=== PATIENT | female | born 1995 | race Caucasian/White ===

== ENCOUNTER 2019-02-25 04:31 | Emergency (ER) | payer MEDICAID, SELFPAY ==
[2019-02-25 04:32] VITALS: BP 129/80; PULSE 87; RESP 16; TEMP 36.6; O2SAT 100; BMI 21.7
--- NOTE | 2019-02-25 04:45 | ED.VISSUMM ---
- ER Visit Summary Date of Service: 02/25/19 Chief Complaint: Eye injury History of Present Illness: The patient is a 23 F who presents for evaluation of a right eye injury. Patient states her 2-year-old son poked her in the right eye with his finger. She had immediate pain and has been unable to open the eye due to pain and photophobia. She does not wear contacts but does wear eyeglasses. She denies any other injuries. Physical Examination: Patient is well-nourished and well-developed, appears uncomfortable. Right eye is shut. No periorbital erythema or edema noted. Left eye has a normal exam. After instillation of tetracaine ophthalmic drop in the right eye, patient has diffuse conjunctiva injection. Extraocular movement intact and pupils are equal round reactive to light. Slit-lamp exam shows anterior chamber deep and quiet. Fluorescein uptake noted in an ovoid shape on the medial cornea negative Karla sign. Remainder of exam unremarkable. Test Results: [] Emergency Department Course and Treatment: Patient had great relief with the tetracaine drop and was able to open her eye comfortably. The eye exam did not show any sign of globe rupture. Patient does have a large corneal abrasion on the medial cornea. No other dye uptake was noted. Patient was placed on erythromycin ointment. She has an eye doctor and will follow up on Wednesday. All but a few drops of the tetracaine was discarded and patient was given the remaining few tetracaine drops to use for severe pain at home. Patient discharged in improved condition. Treatment Plan: [] Disposition: [] Impression: Right corneal abrasion This note was generated with roomlinx dictation software. It may contain incorrect words, spelling, and punctuation that were not noted in review of the chart prior to signing ED Disposition - Plan for ED Patient: Disposition: Home or Assisted Living Instructions: ED Eye Injury Corneal Abrasion Referrals: Keli Arizmendi MD [Primary Care Provider] - Additional Instructions: Please follow-up with your eye doctor on Wednesday for a reevaluation of your eye injury. Use the antibiotic as prescribed to prevent infection. Use [id number] pain medication as needed for pain. You may use 1 tetracaine drop every 4 hours as needed for severe pain. Do not use more than 3 drops in 1 day. If you have any significant worsening of your symptoms or any new concerning symptoms, return immediately to the emergency department for another evaluation.
[2019-02-25] MEDS: Tetracaine 0.5% Ophthalmic Bottle 1 DRP RIGHT EYE (04:48)
[2019-02-25] MEDS: Fluorescein 1 MG STRIP 1 STRIP RIGHT EYE (04:48)
[2019-02-25] MEDS: Erythromycin Base 1 OPTH.TUBE 1 APPLIC RIGHT EYE (04:53)
[2019-02-25 05:11] VITALS: BP 129/80; PULSE 87; RESP 16; O2SAT 100
== END 2019-02-25 05:12 | disposition home or self-care (01) ==
LOC: ED 05:03
PROVIDERS: Emergency Provider Emergency Medicine; Family Provider Internal Medicine; PCP Internal Medicine
DX: S05.01XA Injury of conjunctiva and corneal abrasion without foreign body, right eye, initial encounter (principal); W50.0XXA Accidental hit or strike by another person, initial encounter; Y93.9 Activity, unspecified; Y92.9 Unspecified place or not applicable
CPT/HCPCS: 99283

== ENCOUNTER 2021-07-08 17:56 | Emergency (ER) | payer MEDICAID, SELFPAY ==
[2021-07-08 17:58] VITALS: BP 124/91; PULSE 73; RESP 14; TEMP 35.9; O2SAT 100; BMI 21.6
--- NOTE | 2021-07-08 18:17 | EKG12_ITS ---
Test Reason : DYSRHYTHMIA Blood Pressure : / mmHG Vent. Rate : 074 BPM Atrial Rate : 074 BPM P-R Int : 162 ms QRS Dur : 086 ms QT Int : 388 ms P-R-T Axes : 069 066 039 degrees QTc Int : 430 ms Normal sinus rhythm with sinus arrhythmia Normal ECG Confirmed by TEJA DE LEÓN, SALVATORE ([id number]), film editor CASPER SANCHEZ ([id number]) on 07/10/2021 9:30:32 AM Referred By: TL Confirmed By:SALVATORE LEZAMA MD
--- NOTE | 2021-07-08 18:28 | ED.VIS.DYS ---
HPI History of Present Illness Chief Complaint: Shortness of Breath Informant: patient Narrative Narrative: Patient presents intermittent dyspnea worse with exertion for the past week. Symptoms was worsening yesterday and today. States even short of breath while reading books. 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 Denies any recent travel surgeries or immobilizations. No history of PE or DVT. Denies any past medical history. No family history of clotting disorders. No tobacco history. No cough. No fever or headaches. No vomiting or diarrhea. No loss of taste or smell. She is Covid vaccinated. Reports mother is a nurse, she is monitoring her her pulse ox was in the 90s yesterday. However today symptoms felt a lot worse. She states she has anxiety in the past however this feels different. Prior similar symptoms: No PFSH PFSH Medical History no medical history Home Medications escitalopram oxalate 10 mg PO DAILY 07/08/21 [History Last Taken Unknown] trazodone 50 mg PO DAILY 07/08/21 [History Last Taken Unknown] Allergy/AdvReac Type Severity Reaction Status Date / Time promethazine [From Phenergan] AdvReac Other Verified 07/08/21 17:58 Social History Smoking Status: Never smoker ROS ROS ED Constitutional Constitutional ED: Denies chills, fever(s) or sweats Eyes Eyes: Denies change in vision ENT ENT ED: Denies dysphagia or sore throat Cardiovascular Cardiovascular: Denies chest pain, leg edema, palpitations or racing heartbeat Respiratory/Chest Respiratory/Chest: Reports dyspnea and dyspnea on exertion; Denies cough Gastrointestinal Gastrointestinal: Denies abdominal pain, diarrhea, nausea or vomiting Genitourinary Genitourinary ED: Denies dysuria, hematuria or urinary frequency Musculoskeletal Musculoskeletal: Denies back pain, extremity pain or neck pain Integumentary Denies rash or wounds Neurologic Neurologic: Denies headache(s), paresthesias or weakness EXAM Physical Exam Const Vital Signs: 07/08/21 17:58 07/08/21 18:38 07/08/21 20:10 Temperature 96.7 F L Temperature Source Temporal Pulse Rate 73 85 Respiratory Rate 14 16 Respiratory Effort Normal Non-Labored Respiratory Depth Normal Respiratory Pattern Normal Blood Pressure 124/91 H 116/87 H Blood Pressure Mean 102 Pulse Ox 100 97 Oxygen Delivery Method Room Air Room Air Positive well nourished and well developed General Appearance ED: well developed and NAD HEENT Reports moist mucous membranes normocephalic and atraumatic Eyes PERRL, EOMs intact bilaterally and conjunctivae normal General Eye ED: Yes normal appearance of both eyes Neck no lymphadenopathy and supple General: Negative for tenderness Chest Wall Chest: Negative for tenderness Resp normal respiratory effort and normal air movement Effort and Inspection: symmetric chest movement; Negative for respiratory distress Cardio regular rate, regular rhythm and no murmurs Peripheral Pulses: pulses 2+ throughout GI normal to inspection, nondistended, normoactive bowel sounds and non-tender Palpation: Negative for guarding or rebound tenderness present Back/Spine no CVA tenderness and no thoracic nor lumbar tenderness Extremity normal to inspection General Extremety ED: Negative for edema or tenderness General Extremity: Negative for edema Neuro oriented x3 and no sensory deficits noted Sensorium / Orientation: awake and alert Skin no rashes or lesions noted and no wounds MDM MDM MDM Narrative Medical decision making narrative: EKG cardiac work-up negative. With her concerns for exertional dyspnea D-dimer also obtained normal. Chest x-ray negative. Vitals remained stable. Patient reassured. She will follow-up with her PCP with return precautions. All questions were answered. Lab Data Attestation: I reviewed the patient's lab results. Labs: Laboratory Results - last 24 hr 07/08/21 07/08/21 07/08/21 18:35 18:35 18:35 WBC 6.1 RBC 4.72 Hgb 13.6 Hct 40.0 MCV 84.7 MCH 28.8 MCHC 34.0 RDW Std Deviation 37.9 RDW Coeff of Dileep 12.3 Plt Count 216 MPV 10.2 Immature Gran % (Auto) 0.300 Neut % (Auto) 63.9 Lymph % (Auto) 25.8 Vermillion % (Auto) 6.7 Eos % (Auto) 2.3 Baso % (Auto) 1.0 Absolute Neuts (auto) 3.9 Absolute Lymphs (auto) 1.58 Nucleated RBC % 0 D-Dimer Quant (PE/DVT) 0.29 Sodium 139 Potassium 3.5 Chloride 104 Carbon Dioxide 27.0 Anion Gap 8 BUN 14 Creatinine 0.60 Estim Creat Clear Calc 115.47 Est GFR (MDRD) Af Amer 153 Est GFR (MDRD) Non-Af 127 BUN/Creatinine Ratio 23.4 H Glucose 93 Calcium 9.1 Troponin I High Sens 4 Serum , Qual 07/08/21 18:35 WBC RBC Hgb Hct MCV MCH MCHC RDW Std Deviation RDW Coeff of Dileep Plt Count MPV Immature Gran % (Auto) Neut % (Auto) Lymph % (Auto) Vermillion % (Auto) Eos % (Auto) Baso % (Auto) Absolute Neuts (auto) Absolute Lymphs (auto) Nucleated RBC % D-Dimer Quant (PE/DVT) Sodium Potassium Chloride Carbon Dioxide Anion Gap BUN Creatinine Estim Creat Clear Calc Est GFR (MDRD) Af Amer Est GFR (MDRD) Non-Af BUN/Creatinine Ratio Glucose Calcium Troponin I High Sens Serum , Qual NEGATIVE Radiography Chest X-Ray - ED: 1 View, Read by ED Physician and Read by Radiologist Diagnostic Testing: Clinical Impression(s) from Imaging Studies Chest X-Ray 07/08/21 19:04 IMPRESSION: No acute radiographic abnormalities. Electronically Signed: Seymour Garcia MD at 20:09 EDT Tel , Service support , EKG Initial EKG: Attestation: I personally reviewed and interpreted this EKG as follows: Comments: Sinus rate of 74, no ST or T wave changes. Discharge Plan Triage Chief Complaint: Shortness of Breath ED Provider: Michael Espinoza Dx/Rx/DC Orders Clinical Impression: Dyspnea Instructions: ED Dyspnea Prescriptions: No Action trazodone 50 mg tablet 50 mg PO DAILY RF: 0 escitalopram oxalate 10 mg tablet 10 mg PO DAILY RF: 0 Primary Care Provider: Jess Moffett NP Referrals: Jess Moffett NP, BOATBUILDER APPRENTICE WOOD-C [Primary Care Provider] - 3-5 Days Activity Restrictions/Additional Instructions: Normal cardiac work-up. Normal D-dimer. Normal chest x-ray. Negative Covid testing. Monitor symptoms and follow-up with your PCP. Return if any worsening symptoms. Disposition Disposition: Home, Self Care Discharge Date/Time: 07/08/21 20:11
[2021-07-08 18:41] LABS: Absolute Lymphocyte Count 1.58 X10^3/uL (0.83-4.51); Absolute Neutrophil Count 3.9 X10^3/uL (2.0-7.7); Basophil# 0.06 X10^3/uL; Eosinophil# 0.14 X10^3/uL; Eosinophils% 2.3 % (0-5); Hemoglobin 13.6 g/dL (12.0-15.0); Lymphocyte # 1.58 X10^3/ul (0.83-4.51); Lymphocyte % 25.8 % (19-41); Mean Corpuscular Hgb 28.8 pg (27.0-32.0); Mean Corpuscular Volume 84.7 fL (81-99); Mean Platelet Vol. 10.2 fl (6.2-12.0); Monocyte# 0.41 X10^3/uL; Monocyte% 6.7 % (0-10); NRBC Flagged by Analyzer 0 % (0-5); Neutrophil # 3.91 X10^3/uL (2.7-7.7); Neutrophil % 63.9 % (47-70); Platelet Count 216 K/mm3 (150-450); RBC Distribution Width CV 12.3 % (11.6-14.6); RBC Distribution Width SD 37.9 fl (35.1-43.9); Red Blood Count 4.72 M/mm3 (4.2-5.4); White Blood Count 6.1 K/mm3 (4.4-11.0)
[2021-07-08 18:53] LABS: D-Dimer Quantitative (DVT/PE) 0.29 FEU/ug/m (0.27-0.49)
[2021-07-08 18:54] LABS: Internal QC Validated? YES +Cl - CLEAR BKGD; Pregnancy, Serum, hCG Quali. NEGATIVE Negative
[2021-07-08 18:58] LABS: Anion Gap 8 (5-15); BUN 14 mg/dL (7-18); BUN/Creat Ratio 23.4 RATIO (10-20); Calcium,Total 9.1 mg/dL (8.5-10.1); Chloride 104 mmol/L (98-107); EST Glomerular Filtration Rate 127 mL/min (>60); Est Glom Filt Rate - Afr Amer 153 mL/min (>60); Estimated Creatinine Clearance 115.47 ml/min; Glucose 93 mg/dL (74-106); Potassium 3.5 mmol/L (3.5-5.1); Sodium Level 139 mmol/L (136-145); Troponin-I HS 4 pg/mL (3.0-54.0)
--- NOTE | 2021-07-08 19:04 | RAD_ITS ---
INDICATION: sob EXAMINATION/TECHNIQUE: X-RAY - XR Chest 1 View COMPARISON: 02/14/2015. FINDINGS: The lungs are clear. The cardiomediastinal silhouette is unremarkable. No pleural effusion or pneumothorax. No acute osseous abnormalities. RAD/Chest 1 View (Portable) IMPRESSION: No acute radiographic abnormalities. Electronically Signed: Seymour Garcia MD at 20:09 EDT Tel , Service support ,
[2021-07-08 20:10] VITALS: BP 116/87; PULSE 85; RESP 16; O2SAT 97
== END 2021-07-08 20:11 | disposition home or self-care (01) ==
PROVIDERS: Emergency Provider Emergency Medicine; PCP Nurse Practitioner Family
DX: R06.00 Dyspnea, unspecified (principal); F41.9 Anxiety disorder, unspecified; Z79.899 Other long term (current) drug therapy
CPT/HCPCS: 71045; 80048; 84484; 84703; 85025; 85379; 87426; 93005; 99284

== ENCOUNTER 2022-02-10 07:23 | Day surgery (SDC) | payer MEDICAID, SELFPAY ==
--- NOTE | 2022-02-10 07:47 | PCM.HP.BLA ---
History and Physical Date of Admission: 02/10/22 Intake Vital Signs 01/06/22 09:59 Height 5 ft 3 in Weight: 129 lb BMI 22.8 Intake Visit Reasons: tubal consult Chief Complaint: tubal consult Licensing Court Magistrate Required: No Allergies promethazine [From Phenergan] Adverse Reaction (Verified 07/08/21 17:58) Other Medications escitalopram oxalate 10 mg PO DAILY 07/08/21 [History Confirmed 01/06/22] trazodone 50 mg PO DAILY 07/08/21 [History Confirmed 01/06/22] buspirone 15 mg tablet 15 mg PO TID 01/06/22 [History Confirmed 01/06/22] Is last menstrual period known: Yes Last Menstral Period: 01/05/22 Post menopausal: No Patient : No : No PFSH Family History (Updated 01/06/22 @ 10:03 by Vicky Alba) Grandmother Lung cancer Ovarian cancer Non-Hodgkins lymphoma Mother Thyroid disorder Social History Smoking Status: Never smoker alcohol intake: never substance use type: does not use seatbelt use: always do you feel safe at home: Yes 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 she has been discussing for a while with her they have both looked into permanent options and she wants to proceed. they have 3 combined children. she has a fmaily history of ovarian cancer no genetic testing in the past. she has no history of period issues, regular. she denies desiring any children even if something would happen to her kids and she has been counseled regarding risk of regret. Female Reproductive History Last Menstral Period: 01/05/22 Menopausal Symptoms: No night sweats Pregancy History 2 Elective abortions Hx Para 2 Spontaneous abortions Hx # Term Pregnancies Ectopic pregnancies Hx # Pregnancies Multiple births # of living children 2 ROS Const Constitutional: Denies fatigue, night sweats, weight gain or weight loss ENT ENT: Reports system reviewed and no additional complaints, except as documented Cardio Card: Denies chest pain Resp Resp: Denies cough or dyspnea GI GI: Reports as per HPI; Denies abdominal pain, constipation, nausea or vomiting : Denies nipple discharge, urinary frequency, urinary incontinence, urinary hesitancy, urinary urgency, vaginal discharge, vaginal dryness, vaginal odor or vaginal pruritus Musc Musc: Denies arthralgias, back pain or muscle weakness Skin Skin/Breast: Denies alopecia, change in hair, dry skin, breast mass, breast pain, breast skin changes or nipple discharge Neuro Neuro: Reports system reviewed and no additional complaints, except as documented Psych Psych: Reports system reviewed and no additional complaints, except as documented Endo Endo: Denies cold intolerance, excessive sweating, heat intolerance or polydipsia Juan/Lymph Hematologic/Lymphatic: Denies easy bleeding, Denies easy bruising and Denies lymphadenopathy Exam Const General: cooperative, healthy appearing, comfortable, no acute distress and well developed Orientation: alert HENMT Head: normal to inspection and normocephalic Ears: hearing grossly normal bilaterally and external ears normal Nose: external nose normal and nares normal Face and sinus: normal facial exam Neck Neck: normal visual inspection and no lymphadenopathy Thyroid: thyroid normal Chest Chest palpation & inspection: normal inspection of the chest Resp Effort & Inspection: normal respiratory effort Auscultation: clear to auscultation bilaterally Cardio Rate: regular rate Rhythm: regular rhythm Heart Sounds: S1 normal and S2 normal GI Inspection: normal to inspection and non-distended Palpation: soft and no hepatosplenomegaly Musc Other: gross motor intact no deficits, full bilateral strength Skin General: no rashes or lesions noted Neuro General: patient alert, patient awake, moves all extremities and no focal motor deficits Motor: muscle tone normal throughout Extrem General: normal to inspection and no pedal edema Psych Appearance: grossly normal Mental Status: mental status grossly normal Affect: normal affect Speech and Movement: speech and movement normal Coding Level of Care Code Off vis,new,level 4 Diagnoses Sterilization Z30.2 Family history of ovarian cancer Z80.41 Assessment and Plan Assessment and Plan (1) Sterilization: Status: Acute Comment: title 19 signed 01/06. laparoscopic bilateral salpingectomy (2) Family history of ovarian cancer: Status: Acute Comment: [employer] screening discussed Plan - Dr. Megan Teran MD: After discussing the patient's diagnosis and treatment plan options, patient wishes to proceed with surgical management. I have discussed with the patient the risks, benefits, and alternatives of the procedure which include but are not limited to risks of anesthesia, bleeding, infection, possible damage to bowel, bladder, or surrounding vasculature which could lead to additional surgery to evaluate any complications. Patient agrees to procedure and wishes to proceed. ACOG/uptodate references given for additional information regarding procedure. 01/06/22 1036 UPDATE- I have seen the patient and performed any clinically relevant updates to the history and physical exam. Megan Teran MD
[2022-02-10 08:13] LABS: Absolute Lymphocyte Count 1.12 X10^3/uL (0.83-4.51); Absolute Neutrophil Count 3.6 X10^3/uL (2.0-7.7); Basophil# 0.04 X10^3/uL; Basophil% 0.7 % (0-1); Eosinophil# 0.16 X10^3/uL; Hematocrit 37.6 % (37-47); Hemoglobin 12.9 g/dL (12.0-15.0); Lymphocyte # 1.12 X10^3/ul (0.83-4.51); Lymphocyte % 20.8 % (19-41); Mean Corp Hgb Conc 34.3 g/dL (32-36); Mean Corpuscular Hgb 29.3 pg (27.0-32.0); Mean Corpuscular Volume 85.3 fL (81-99); Mean Platelet Vol. 10.6 fl (6.2-12.0); Monocyte# 0.43 X10^3/uL; NRBC Flagged by Analyzer 0 % (0-5); Neutrophil # 3.62 X10^3/uL (2.7-7.7); Neutrophil % 67.1 % (47-70); Platelet Count 209 K/mm3 (150-450); RBC Distribution Width SD 37.3 fl (35.1-43.9); Red Blood Count 4.41 M/mm3 (4.2-5.4); White Blood Count 5.4 K/mm3 (4.4-11.0)
[2022-02-10 08:15] VITALS: BP 107/70; PULSE 76; RESP 18; TEMP 36.8; O2SAT 99; BMI 22.4
[2022-02-10 08:20] LABS: Internal QC Validated? YES +Cl - CLEAR BKGD; Pregnancy, Urine Negative Negative
[2022-02-10] MEDS: Lactated Ringers 1,000 ML 15 ML IV (08:20)
--- NOTE | 2022-02-10 09:30 | FALS_PTH ---
PATIENT: LUCAS ISLAS [place] [facility] [place][id number] AGE/SX: 26/F ROOM: RE02/10/[address]: Dr. Megan Teran MD : 1995 BED: DIS: 02/10/2022 SPEC #: [id number] RECD: 02/10/22 12:16 STATUS: ISSA REGetachew #: [id number] ROBLES: 02/10/22 09:[address]: Megan Teran DEPT: SURGICAL PATHOLOGY RECD BY: Rich Slaughter ENTERED: 02/10/22 12:23 SP TYPE: FALL TUBES OTHR DR: Lucas Moffett, LOT TECHNICIAN-C Tissues: Fallopian tube Procedures: Surgery Specimen Level II HEADER OPERATION: Laparoscopic salpingectomy PRE-OP DIAGNOSIS: Sterilization TISSUE SUBMITTED: Bilateral fallopian tubes MICROSCOPIC DIAGNOSIS Right and left fallopian tubes, segmental salpingectomies: Complete cross-sections of two fallopian tubes with no pathologic change. AM:pat 02/11/2022 MICROSCOPIC DESCRIPTION Slides are reviewed. GROSS DESCRIPTION Received in fixative is one container labeled with the patient's name and designated bilateral fallopian tubes. The specimen consists of two fallopian tubes with an average length of 7 cm and has an average diameter of 0.7 cm. Both fallopian tubes have normal fimbriated ends. No mass lesions are identified. Wood Pattern Maker sections are submitted in two cassettes as follows: 1 - one fallopian tube, 2 - the other fallopian tube. / AM:pat 02/10/2022 TC:4 CPT: 52683 x2
--- NOTE | 2022-02-10 09:44 | DCINST_ITS ---
Discharge Instructions Diet Discharge Diet: No restrictions Activity Discharge Activity: Return to Normal Activity, May Not Drive (for 2 weeks or while taking narcotic pain meds.), May Shower and May Take a Tub Bath (in 7 days) May resume sexual activity in: 1 week Weight Bearing Status: Full weight bearing Dressing / Incision Call your doctor if your incision/area has: Continuous Slow Oozing, Sudden Increased Bleeding, Increased Pain/ Swelling, Increased Redness and Foul Smelling Discharge Call your doctor if you observe: Fever of 101 or Higher, Using more than 1 pad per hour, Shortness of breath, Chest pain and Uncontrolled pain Suture Line Care: Avoid Pulling/Pushing and Avoid Pinching/Bending Remove Dressing in: 1 week (if present) Cleanse incision/area with: Soap & Water and Keep Dressing Clean & Dry Follow Up Care When: Call to make an appointment with your doctor for a fu/incision check in 1- 2 weeks. Test Results: Test results from this visit will be discussed in further detail at your follow-up appointment, if applicable. Discharge Plan Admission Primary Reason for Your Visit: bilateral salpingectomy Attending Provider: Megan Teran Primary Care Provider: Jess Moffett NP Discharge Orders/Prescriptions Prescriptions: New oxycodone-acetaminophen [Percocet] 5-325 mg tablet 1 tab PO Q6H PRN (Reason: pain) 7 Days Qty: 20 RF: 0 naproxen [naproxen] 500 MG tablet 500 mg PO BID PRN PRN (Reason: Pain) Qty: 30 RF: 1 Continued buspirone 15 mg tablet 15 mg PO BID RF: 0 trazodone 50 mg tablet 50 mg PO QHS RF: 0 escitalopram oxalate 10 mg tablet 5 mg PO DAILY RF: 0 loratadine [Claritin] 10 mg Tablet 10 mg PO DAILY RF: 0 Referrals / Follow Up: Jess Moffett NP, OPERATIONS RESEARCH MANAGER-C [Primary Care Provider] - Disposition Disposition (needs filled in before D/C Order can be placed): Home, Self Care
--- NOTE | 2022-02-10 09:44 | PCM.OPRPT ---
Problems Associated Problem List Diagnoses (1) Status post bilateral salpingectomy: (2) Sterilization: Report of Operation Date of Procedure: 02/10/22 Pre-Operative Diagnosis: see problem list Post-Operative Diagnosis: same Surgery/Procedure Performed:: laparoscopic bilateral salpingectomy Description of Surgical Findings:: nl uterus tubes ovaries Surgeon: Megan Teran Type of Anesthesia: General and Local Special Medications: nonee Specimen's removed: tubes Drains: none Estimated Blood Loss (mL): 50 Fluids Replaced: crystalloid Description of Procedure: Patient was taken in the operating room and was placed under general anesthesia was prepped and draped in normal sterile fashion in the dorsal lithotomy position. Bladder was drained of clear urine and SCDs were on preoperatively. Uterus was sounded and a uterine manipulator was placed after dilating. Attention was then paid to the abdominal portion of the procedure and the umbilicus was elevated with towel clamps and injected with Marcaine and after a 5 mm incision was made and the Veress needle was entered into the abdomen confirmed to be intra-abdominal with a low opening pressure of less than 5 mmHg. Abdomen was insufflated with CO2 gas and a 5 mm optical trocar was placed under direct visualization. A 5 mm port suprapubically was placed under direct visualization. Uterus was well visualized and bilateral fallopian tubes identified and bilateral tubes were elevated and transecting across the mesosalpinx and the attachment to the uterine corpus bilaterally the tubes were removed without complication. Excellent hemostasis was noted. Fallopian tubes were removed through the lower port site without complication. Liver and upper abdomen were visualized notably within normal limits and no other gross abnormalities were seen in the abdomen. All instruments removed from the abdomen after gas was desufflated. Port sites were closed with 3-0 Monocryl Steri's and op sites were applied. All instruments removed from the vagina and patient was awoken and taken recovery in stable condition. Grafts/Implants Used: none Complications none Admit VTE Documentation VTE Present on Admission: No VTE Mechan Device Prophylaxis: SCD's Multi Select Codes Urinary/Genital Urinary/Genital CPT Codes: 73821 Laproscopic BS/O
[2022-02-10] MEDS: Bupivacaine Mpf 0.5% 30 ML VIAL (10:45)
[2022-02-10 11:07] VITALS: BP 107/70; BP 99/75; PULSE 66; RESP 18; TEMP 36.8; O2SAT 98
[2022-02-10 11:15] VITALS: BP 107/70; BP 98/72; PULSE 65; RESP 16; O2SAT 99
[2022-02-10 11:30] VITALS: BP 107/70; BP 92/71; PULSE 67; RESP 16; O2SAT 99
[2022-02-10 11:44] VITALS: BP 107/70; BP 98/72; PULSE 80; RESP 16; TEMP 36.1; O2SAT 99
[2022-02-10 12:40] VITALS: BP 101/66; BP 107/70; PULSE 77; RESP 14; TEMP 36.2; O2SAT 98
== END 2022-02-10 12:50 | disposition home or self-care (01) ==
LOC: SDC 07:24 → AC 07:25
PROVIDERS: PCP Nurse Practitioner Family; Referring Provider Obstetrics & Gynecology; Visit Provider Obstetrics & Gynecology
PROC: (CPT 58661; principal; 2022-02-10 09:15)
DX: Z30.2 Encounter for sterilization (principal); F41.9 Anxiety disorder, unspecified; F32.A Depression, unspecified; G25.81 Restless legs syndrome; Z79.899 Other long term (current) drug therapy; Z80.41 Family history of malignant neoplasm of ovary
CPT/HCPCS: 58661; 81025; 85025; 86850; 86900; 86901; 88302; J7120; J2405

== ENCOUNTER 2022-09-14 11:23 | Emergency (ER) | payer MEDICAID, SELFPAY ==
[2022-09-14 11:24] VITALS: BP 119/87; PULSE 100; RESP 16; TEMP 36.3; O2SAT 100; BMI 22.1
[2022-09-14 13:15] LABS: Bedside Glucose 89 mg/dL (74-106)
--- NOTE | 2022-09-14 13:43 | ED.VIS.FEGU ---
HPI HPI - Female History of Present Illness Chief Complaint: Female C/O Informant: patient Narrative Narrative: Patient presents with vaginal itching redness and a thick discharge. She states she had something like this but her discharge was thinner. This occurred beginning of August. She was seen on about the . She was treated for BV and yeast. Her symptoms were getting better but now the thicker discharge is coming back. Her BV was about 5 days of what sounds like Flagyl. She was given a single dose of Diflucan for the yeast. She has no history of polyuria polydipsia or diabetes. No abdominal pain. No bleeding. No urinary symptoms. She is eating and drinking normally. She tried to see her [employer] office but they were closed today. [facility] Medical History Alcohol use Anxiety Depression Former smoker Heartburn Migraine headache Restless legs Sterilization Wears glasses Home Medications escitalopram oxalate 10 mg tablet 5 mg PO DAILY 07/08/21 [History Last Taken 02/10/22] trazodone 50 mg tablet 50 mg PO QHS 07/08/21 [History Last Taken Unknown] buspirone 15 mg tablet 15 mg PO BID 01/06/22 [History Last Taken Unknown] loratadine 10 mg tablet (Claritin) 10 mg PO DAILY 02/03/22 [History Last Taken Unknown] fluconazole 150 mg tablet (Diflucan) 150 mg PO DAILY #1 TAB 09/14/22 [Rx Last Taken Unknown] miconazole nitrate 2 % vaginal cream (Miconazole-7) 1 appful vaginal QHS 7 days #45 grams 09/14/22 [Rx Last Taken Unknown] Allergy/AdvReac Type Severity Reaction Status Date / Time sertraline [From Zoloft] AdvReac Unknown unknown Verified 09/14/22 11:26 promethazine [From Phenergan] AdvReac Other Verified 09/14/22 11:26 Family History Grandmother Lung cancer Ovarian cancer Non-Hodgkins lymphoma Mother Thyroid disorder Surgical History History of back surgery Hx of wisdom tooth extraction Status post bilateral salpingectomy Social History Smoking Status: Former smoker alcohol intake: never substance use type: does not use seatbelt use: always do you feel safe at home: Yes 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 ; Denies dysuria, hematuria or urinary frequency Musculoskeletal Musculoskeletal: Denies myalgias Integumentary Reports other Details: Redness and slight swelling externally vaginally. Endocrine Endocrinology: Denies polydipsia or polyuria Hematologic/Lymphatic Hematologic/Lymphatic: Denies lymphadenopathy Allergic/Immunologic Allergic/Immunologic ED: Denies urticaria EXAM Physical Exam Const Vital Signs: 09/14/22 11:24 Temperature 97.3 F L Temperature Source Temporal Pulse Rate 100 Respiratory Rate 16 Blood Pressure 119/87 H Blood Pressure Mean 97 Pulse Ox 100 Oxygen Delivery Method Room Air Positive well nourished HEENT Reports moist mucous membranes HEENT Narrative: No thrush. 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 We just did external exam. No internal exam was done. She does have external erythema. Mild swelling of labia minora. There is a whitish thicker discharge. No sign of Bartholin cyst. Back/Spine no CVA tenderness Extremity normal to inspection Skin Skin Narrative: See vaginal exam above. No other rash. MDM MDM MDM Narrative Medical decision making narrative: Patient's fingerstick glucose was 89. Patient has symptoms and exam most consistent with yeast vaginitis. This is a recurrent case that came back after initial treatment. Although she was treated appropriately with a single dose of Diflucan, this will not always cure this. I will start her again on Diflucan here. However I will give another dose in a week. We will also have her use Monistat in between this. She has no pelvic or abdominal pain or diarrhea. I do not think she needs imaging. I do not think there is any indication of tubo-ovarian abscess. She has no pain fevers or chills. She has all external symptoms. No symptoms of and she has had bilateral tubal ligation. Lab Data Attestation: I reviewed the patient's lab results. Labs: Laboratory Results - last 24 hr 09/14/22 12:55 POC Glucose 89 Discharge Plan Triage Chief Complaint: Female C/O ED Provider: Ankur Reeder Dx/Rx/DC Orders Clinical Impression: Yeast vaginitis Instructions: ED PATIENCE VAGINITIS Prescriptions: New miconazole nitrate [Miconazole-7] 2 % cream 1 appful vaginal QHS 7 Days Qty: 45 0RF fluconazole [Diflucan] 150 mg tablet 150 mg PO DAILY Qty: 1 0RF Rx Instructions: Take in 1 week. No Action buspirone 15 mg tablet 15 mg PO BID trazodone 50 mg tablet 50 mg PO QHS escitalopram oxalate 10 mg tablet 5 mg PO DAILY loratadine [Claritin] 10 mg Tablet 10 mg PO DAILY Primary Care Provider: Jess Moffett NP Referrals: Megan Teran MD [Med Staff - Active Staff] - 1 Week Jess Moffett NP, [employer] [Primary Care Provider] - Disposition Disposition: Home, Self Care
[2022-09-14] MEDS: Fluconazole 100 MG Tablet 200 MG PO (14:25)
== END 2022-09-14 14:26 | disposition home or self-care (01) ==
PROVIDERS: Emergency Provider Emergency Medicine; PCP Nurse Practitioner Family; Visit Provider Emergency Medicine
DX: B37.31 Acute candidiasis of vulva and vagina (principal); Z87.891 Personal history of nicotine dependence
CPT/HCPCS: 82962; 99283

== ENCOUNTER → 2022-10-06 | Outpatient (CLI) | payer MEDICAID, SELFPAY ==
[2022-10-08 09:08] LABS: Chlamydia By Nucleic Acid AMP Negative (Negative)
[2022-10-08 18:44] LABS: Gonococcus By Nucleic Acid AMP Negative (Negative)
[2022-10-12 17:05] LABS: HPV Reflexed? NOT INDICATED
== END | disposition home or self-care (01) ==
LOC: LABSPEC 11:36
PROVIDERS: PCP Nurse Practitioner Family; Visit Provider Nurse Practitioner Women's Health
DX: Z12.4 Encounter for screening for malignant neoplasm of cervix (principal); Z11.3 Encounter for screening for infections with a predominantly sexual mode of transmission
CPT/HCPCS: 87491; 87591; 88175; G0145

== ENCOUNTER → 2023-10-12 | Outpatient (CLI) | payer BC, SELFPAY ==
--- OUTSIDE RECORDS SUMMARY | 2023-10-12 13:43 | XMS RPT_ITS | CCD ---
Author Name Unknown Address [address] [place] [address] Organization [facility] Care Team Providers Care Computer Hardware Developer Name Role Phone Zuhair OPTICAL MECHANIC APPRENTICE.Lucas LUNA Primary Care Provider LUCAS GREEN Attending Unavailable LUCAS GREEN Primary Care Unavailable LUCAS GREEN Attending Unavailable LUCAS GREEN Primary Care Unavailable Zuhair OPTICAL MECHANIC APPRENTICE.Lucas LUNA Primary Care Provider LUCAS GREEN Referring Unavailable LUCAS GREEN Primary Care Unavailable LUCAS GREEN Primary Care Unavailable LUCAS GREEN Primary Care Unavailable LUCAS GREEN Primary Care Unavailable Allergies Allergy Classification Reported Allergen(s) Allergy Type Date of Onset Reaction(s) Facility (13 sources) Promethazine; Translations: [PROMETHAZINE HCL] Drug Allergy 07-28-2016 Other: See Comments [facility] Work Phone: (13 sources) Sertraline; Translations: [SERTRALINE HCL] Drug Allergy 03-04-2015 Intolerance [facility] Work Phone: Medications Current Medications Medication Drug Class(es) Dates Sig (Normalized) Sig (Original) amoxicillin 875 mg / clavulanate 125 mg oral tablet (1 source) Penicillin-class Antibacterial Start: 08-11-2022 End: 08-16-2022 take 1 tablet by mouth twice daily amoxicillin-clav ulanic acid (AUGMENTIN) 875-125 mg per tablet Take 1 tablet by mouth twice daily for 5 days. 10 tablet 0 08/11/2022 08/16/2022 Active Completed/Discontinued Medications Medication Drug Class(es) Dates Sig (Normalized) Sig (Original) cetirizine hydrochloride 10 mg oral tablet (8 sources) Histamine-1 Receptor Antagonist Start: 12-10-2021 End: 10-28-2022 take 1 tablet by mouth once daily cetirizine (ZYRTEC) 10 mg tablet Take 1 tablet by mouth once daily. 30 tablet 3 12/10/2021 10/28/2022 Discontinued Problems Active Problems Problem Classification Problem Date Documented Date Episodic/Chronic Allergic reactions (2 sources) Chronic hand eczema; Translations: [Dermatitis, unspecified] Onset: 12-11-2022 Episodic Anxiety disorders (15 sources) Generalized anxiety disorder; Translations: [Generalized anxiety disorder] Onset: 09-27-2019 09-27-2019 Chronic Headache; including migraine (12 sources) Migraine; Translations: [Migraine, unspecified, not intractable, without status migrainosus] Onset: 03-10-2011 03-26-2021 Chronic Mood disorders (3 sources) Recurrent major depressive episodes, mild ; Translations: [Major depressive disorder, recurrent, mild] Onset: 12-11-2022 Chronic Other female genital disorders (1 source) Vaginal discharge; Translations: [Other specified noninflammatory disorders of vagina] Episodic Other screening for suspected conditions (not mental disorders or infectious disease) (4 sources) Encounter for screening for other suspected endocrine disorder; Translations: [Encounter for screening for lipoid disorders] Onset: 12-11-2022 Episodic Other upper respiratory infections (3 sources) Pharyngitis; Translations: [Acute pharyngitis, unspecified] Episodic Otitis media and related conditions (1 source) Finding of fluid behind tympanic membrane; Translations: [Unspecified nonsuppurative otitis media, unspecified ear] Episodic Unclassified (1 source) Sleep Problem Onset: 10-28-2022 Past or Other Problems Problem Classification Problem Date Documented Da te Episodic/Chronic Contraceptive and procreative management (7 sources) Patient encounter status; Translations: [Encounter for sterilization] Onset: 10-28-2022 10-28-2022 Episodic Other injuries and conditions due to external causes (11 sources) H/O: head injury; Translations: [Personal history of other (healed) physical injury and trauma] Onset: 10-31-2019 10-31-2019 Episodic Residual codes; unclassified (12 sources) Insomnia; Translations: [Insomnia, unspecified] Onset: 09-27-2019 09-27-2019 Episodic Residual codes; unclassified (5 sources) Family history of breast cancer; Translations: [Family history of malignant neoplasm of breast] Onset: 10-23-2022 10-28-2022 Episodic Residual codes; unclassified (5 sources) Family history of malignant neoplasm of ovary; Translations: [Family history of malignant neoplasm of ovary] Onset: 01-06-2022 10-28-2022 Episodic Results Test Name Value Interpretation Reference Range Facil ity Vital Signs Date Time Vital Sign Value Performing Clinician Sofia suero 12-11-2022 09:58-0400 Body height 161.3 cm Lucas Green APRN.CNP Work Phone: [facility] 12-11-2022 09:58-0400 Body temperature 98.6 [degF] Lucas Green APRN.BUSINESS SUPPORT Work Phone: [facility] 12-11-2022 09:58-0400 Body weight 56.7 kg Lucas Green APRN.BUSINESS SUPPORT Work Phone: [facility] 12-11-2022 09:58-0400 Diastolic blood pressure 70 mm[Hg] Lucas Green APRN.BUSINESS SUPPORT Work Phone: [facility] 12-11-2022 09:58-0400 Heart rate 72 /min Lucas Green APRN.BUSINESS SUPPORT Work Phone: [facility] 12-11-2022 09:58-0400 SaO2% (BldA) [Mass fraction] 98 % Lucas Green APRN.BUSINESS SUPPORT Work Phone: [facility] 12-11-2022 09:58-0400 Systolic blood pressure 110 mm[Hg] Lucas Green APRN.BUSINESS SUPPORT Work Phone: [facility] 08-22-2022 10:53-0500 Body temperature 98.29 [degF] Tu Rivers APRN.BUSINESS SUPPORT Work Phone: [facility] 08-22-2022 10:53-0500 Body weight 59.42 kg Tu Rivers APRN.BUSINESS SUPPORT Work Phone: [facility] 08-22-2022 10:53-0500 Diastolic blood pressure 72 mm[Hg] Tu Pendlebury OPTICAL MECHANIC APPRENTICE.BUSINESS SUPPORT Work Phone: [facility] 08-22-2022 10:53-0500 Heart rate 88 /min Tu Pendlebury OPTICAL MECHANIC APPRENTICE.BUSINESS SUPPORT Work Phone: [facility] 08-22-2022 10:53-0500 Respiratory rate 16 /min Tu Pendlebury OPTICAL MECHANIC APPRENTICE.BUSINESS SUPPORT Work Phone: [facility] 08-22-2022 10:53-0500 SaO2% (BldA) [Mass fraction] 99 % Tu Pendlebury OPTICAL MECHANIC APPRENTICE.BUSINESS SUPPORT Work Phone: [facility] 08-22-2022 10:53-0500 Systolic blood pressure 124 mm[Hg] Tu Pendlebury OPTICAL MECHANIC APPRENTICE.BUSINESS SUPPORT Work Phone: [facility] 08-11-2022 11:35-0500 Body temperature 98.4 [degF] Idalia Don OPTICAL MECHANIC APPRENTICE.BUSINESS SUPPORT Work Phone: [facility] 08-11-2022 11:35-0500 Body weight 59.42 kg Idalia Don OPTICAL MECHANIC APPRENTICE.BUSINESS SUPPORT Work Phone: [facility] 08-11-2022 11:35-0500 Diastolic blood pressure 72 mm[Hg] Idalia Don OPTICAL MECHANIC APPRENTICE.BUSINESS SUPPORT Work Phone: [facility] 08-11-2022 11:35-0500 Heart rate 76 /min Idaila Don OPTICAL MECHANIC APPRENTICE.BUSINESS SUPPORT Work Phone: [facility] 08-11-2022 11:35-0500 Respiratory rate 16 /min Idalia Don OPTICAL MECHANIC APPRENTICE.BUSINESS SUPPORT Work Phone: [facility] 08-11-2022 11:35-0500 SaO2% (BldA) [Mass fraction] 99 % Idalia Don OPTICAL MECHANIC APPRENTICE.BUSINESS SUPPORT Work Phone: [facility] 08-11-2022 11:35-0500 Systolic blood pressure 122 mm[Hg] Idalia Don OPTICAL MECHANIC APPRENTICE.BUSINESS SUPPORT Work Phone: [facility] 07-23-2022 12:04-0500 Body temperature 98.6 [degF] Natalya Simpson OPTICAL MECHANIC APPRENTICE.BUSINESS SUPPORT Work Phone: [facility] 07-23-2022 12:04-0500 Body weight 57.97 kg Natalya Simpson OPTICAL MECHANIC APPRENTICE.BUSINESS SUPPORT Work Phone: [facility] 07-23-2022 12:04-0500 Diastolic blood pressure 66 mm[Hg] Natalya Simpson OPTICAL MECHANIC APPRENTICE.BUSINESS SUPPORT Work Phone: [facility] 07-23-2022 12:04-0500 Heart rate 82 /min Natalya Simpson OPTICAL MECHANIC APPRENTICE.BUSINESS SUPPORT Work Phone: [facility] 07-23-2022 12:04-0500 Respiratory rate 18 /min Natalya Simpson OPTICAL MECHANIC APPRENTICE.BUSINESS SUPPORT Work Phone: [facility] 07-23-2022 12:04-0500 SaO2% (BldA) [Mass fraction] 98 % Natalya Simpson OPTICAL MECHANIC APPRENTICE.BUSINESS SUPPORT Work Phone: [facility] 07-23-2022 12:04-0500 Systolic blood pressure 118 mm[Hg] Natalya Simpson OPTICAL MECHANIC APPRENTICE.BUSINESS SUPPORT Work Phone: [facility] 12-10-2021 14:38-0400 Body temperature 97.5 [degF] Idalia Don OPTICAL MECHANIC APPRENTICE.BUSINESS SUPPORT Work Phone: [facility] 12-10-2021 14:38-0400 Body weight 58.33 kg Idalia Don OPTICAL MECHANIC APPRENTICE.BUSINESS SUPPORT Work Phone: [facility] 12-10-2021 14:38-0400 Diastolic blood pressure 76 mm[Hg] Idalia Don OPTICAL MECHANIC APPRENTICE.BUSINESS SUPPORT Work Phone: [facility] 12-10-2021 14:38-0400 Heart rate 90 /min Idalia Don OPTICAL MECHANIC APPRENTICE.BUSINESS SUPPORT Work Phone: [facility] 12-10-2021 14:38-0400 Respiratory rate 19 /min Idalia Don OPTICAL MECHANIC APPRENTICE.BUSINESS SUPPORT Work Phone: [facility] 12-10-2021 14:38-0400 SaO2% (BldA) [Mass fraction] 99 % Idalia Ochoa APRN.CNP Work Phone: [facility] 12-10-2021 14:38-0400 Systolic blood pressure 104 mm[Hg] Idalia Ochoa APRN.CNP Work Phone: [facility] Encounters Encounter Date Encounter Type Care Provider Facility Start: 08-21-2023 Refill Lucas sharp OPTICAL MECHANIC APPRENTICE.BUSINESS SUPPORT Work Phone: [facility] Procedures Date Procedure Procedure Detail Performing Clinician Start: 10-28-2022 H/O: surgery Status post bilateral salpingectomy Lucas Green APRN.CNP Work Phone: Start: 07-23-2022 STREP A MOLECULAR (POC) Natalya Simpson APRN.CNP Work Phone: Start: 03-21-2021 Adult depression screening assessment Idalia Ochoa APRN.BUSINESS SUPPORT Work Phone: Plan of Treatment Date Care Activity Detail Author Start: 10-06-2027 Screening for malign ant neoplasm of cervix Pap Testing [facility] Start: 12-10-2026 Urine microalbumin profile [facility] Start: 10-06-2025 PAP TESTING PAP TESTING [facility] Start: 12-12-2023 COVID-19 VACCINE (4 - Booster for Moderna series) COVID-19 VACCINE (4 - Booster for Moderna series) [facility] Immunizations Immunization Date Immunization Notes Care Provider Los chou 12-10-2016 tetanus toxoid, redu david diphtheria toxoid, and acellular pertussis vaccine, adsorbed Idalia Ochoa APRN.BUSINESS SUPPORT Work Phone: [facility] Work Phone: 10-01-2015 tetanus toxoid, redu david diphtheria toxoid, and acellular pertussis vaccine, adsorbed Idalia Ochoa APRN.BUSINESS SUPPORT Work Phone: [facility] 08-07-2012 tetanus toxoid, redu david diphtheria toxoid, and acellular pertussis vaccine, adsorbed Idalia Ochoa APRN.BUSINESS SUPPORT Work Phone: [facility] Work Phone: 06-24-2009 influenza virus vacc ine, unspecified formulation Idalia Don OPTICAL MECHANIC APPRENTICE.BUSINESS SUPPORT Work Phone: [facility] Work Phone: 04-04-2008 human papilloma viru s vaccine, quadrivalent Idalia Don OPTICAL MECHANIC APPRENTICE.BUSINESS SUPPORT Work Phone: [facility] Work Phone: 11-03-2007 human papilloma viru s vaccine, quadrivalent Idalia Don OPTICAL MECHANIC APPRENTICE.BUSINESS SUPPORT Work Phone: [facility] Work Phone: 08-10-2007 human papilloma viru s vaccine, quadrivalent Idalia Don OPTICAL MECHANIC APPRENTICE.BUSINESS SUPPORT Work Phone: [facility] Work Phone: 08-10-2007 influenza virus vacc ine, unspecified formulation Idalia Burgosk OPTICAL MECHANIC APPRENTICE.BUSINESS SUPPORT Work Phone: [facility] Work Phone: 08-10-2007 meningococcal polysaccharide (groups A, C, Y and W-135) diphtheria toxoid conjugate vaccine (MCV4P) Idalia Ochoa APRN.[facility] Work Phone: [facility] Work Phone: 08-10-2007 Meningococcal, MCV4, unspecified conjugate formulation(groups A, C, Y and W-135) Idalia Ochoa APRN.BUSINESS SUPPORT Work Phone: [facility] Work Phone: 05-03-2006 tetanus toxoid, redu david diphtheria toxoid, and acellular pertussis vaccine, adsorbed Idalia Ochoa OPTICAL MECHANIC APPRENTICE.BUSINESS SUPPORT Work Phone: [facility] Work Phone: 01-21-1998 diphtheria, tetanus toxoids and acellular pertussis vaccine, unspecified formulation Idalia Ochoa OPTICAL MECHANIC APPRENTICE.BUSINESS SUPPORT Work Phone: [facility] Work Phone: 01-21-1998 hepatitis B vaccine, pediatric or pediatric/adolescent dosage Idalia Ochoa OPTICAL MECHANIC APPRENTICE.BUSINESS SUPPORT Work Phone: [facility] Work Phone: 01-21-1998 measles, mumps and rubella virus vaccine Idalia Don OPTICAL MECHANIC APPRENTICE.BUSINESS SUPPORT Work Phone: [facility] Work Phone: 01-21-1998 poliovirus vaccine, inactivated Idalia Don OPTICAL MECHANIC APPRENTICE.[facility] Work Phone: [facility] Work Phone: 01-21-1998 trivalent poliovirus vaccine, live, oral Idalia Don OPTICAL MECHANIC APPRENTICE.[facility] Work Phone: [facility] Work Phone: 01-11-1998 diphtheria, tetanus toxoids and acellular pertussis vaccine Idalia Don OPTICAL MECHANIC APPRENTICE.[facility] Work Phone: [facility] Work Phone: 10-25-1996 diphtheria, tetanus toxoids and acellular pertussis vaccine Idalia Don OPTICAL MECHANIC APPRENTICE.[facility] Work Phone: [facility] Work Phone: 10-25-1996 diphtheria, tetanus toxoids and pertussis vaccine Idalia Don OPTICAL MECHANIC APPRENTICE.[facility] Work Phone: [facility] Work Phone: 10-25-1996 hepatitis B vaccine, pediatric or pediatric/adolescent dosage Idalia Don OPTICAL MECHANIC APPRENTICE.[facility] Work Phone: [facility] Work Phone: 10-25-1996 poliovirus vaccine, inactivated Idalia Don OPTICAL MECHANIC APPRENTICE.[facility] Work Phone: [facility] Work Phone: 10-25-1996 trivalent poliovirus vaccine, live, oral Idalia Don OPTICAL MECHANIC APPRENTICE.[facility] Work Phone: [facility] Work Phone: 07-10-1996 DTP-Haemophilus influenzae type b conjugate vaccine Idalia Don OPTICAL MECHANIC APPRENTICE.[facility] Work Phone: [facility] Work Phone: 07-10-1996 haemophilus influenz ae type b vaccine, HbOC conjugate Idalia Don OPTICAL MECHANIC APPRENTICE.BUSINESS SUPPORT Work Phone: [facility] Work Phone: 07-10-1996 haemophilus influenz ae type b vaccine, PRP-T conjugate Idalia Don OPTICAL MECHANIC APPRENTICE.BUSINESS SUPPORT Work Phone: [facility] Work Phone: 07-10-1996 hepatitis B vaccine, pediatric or pediatric/adolescent dosage Idalia Don OPTICAL MECHANIC APPRENTICE.BUSINESS SUPPORT Work Phone: [facility] Work Phone: 07-10-1996 measles, mumps and rubella virus vaccine Idalia Don OPTICAL MECHANIC APPRENTICE.[facility] Work Phone: [facility] Work Phone: 07-10-1996 poliovirus vaccine, inactivated Idalia Don OPTICAL MECHANIC APPRENTICE.[facility] Work Phone: [facility] Work Phone: 07-10-1996 trivalent poliovirus vaccine, live, oral Idalia Don OPTICAL MECHANIC APPRENTICE.[facility] Work Phone: [facility] Work Phone: 07-10-1994 diphtheria, tetanus toxoids and acellular pertussis vaccine Idalia Don OPTICAL MECHANIC APPRENTICE.BUSINESS SUPPORT Work Phone: [facility] Work Phone: 07-10-1994 diphtheria, tetanus toxoids and pertussis vaccine Idalia Don OPTICAL MECHANIC APPRENTICE.BUSINESS SUPPORT Work Phone: [facility] Work Phone: 1993 diphtheria, tetanus toxoids and acellular pertussis vaccine Idalia Don OPTICAL MECHANIC APPRENTICE.BUSINESS SUPPORT Work Phone: [facility] Work Phone: 1993 diphtheria, tetanus toxoids and pertussis vaccine Idalia Don OPTICAL MECHANIC APPRENTICE.BUSINESS SUPPORT Work Phone: [facility] Work Phone: 1993 haemophilus influenz ae type b vaccine, HbOC conjugate Idalia Don OPTICAL MECHANIC APPRENTICE.BUSINESS SUPPORT Work Phone: [facility] Work Phone: 1993 haemophilus influenz ae type b vaccine, PRP-T conjugate Idalia Ochoa OPTICAL MECHANIC APPRENTICE.BUSINESS SUPPORT Work Phone: [facility] Work Phone: 1993 poliovirus vaccine, inactivated Idalia Don OPTICAL MECHANIC APPRENTICE.BUSINESS SUPPORT Work Phone: [facility] Work Phone: 1993 trivalent poliovirus vaccine, live, oral Idalia Don OPTICAL MECHANIC APPRENTICE.BUSINESS SUPPORT Work Phone: [facility] Work Phone: Payers Date Payer Category Payer Medicaid [id number] 2016 Medicaid [facility] [employer] [id number] 2016-Present [phone] [address] [place] [address] Medicaid [id number] 2016 Medicaid [id number] 2016 Medicaid [id number] Social History Date Type Detail Facility Start: 07-16-2016 End: 07-23-2022 Tobacco smoking status MEIS Ex-smoker [facility] Work Phone: End: 07-02-2016 History of tobacco use Current smoker [facility] Work Phone: End: 07-02-2016 History of tobacco use Cigarette Smoker [facility] Work Phone: Start: 07-16-2016 End: 10-28-2022 Cigarettes smoked current (pack per day) - Reported 0.5 [facility] Start: 07-16-2016 End: 07-23-2022 Tobacco use and exposure Former smokeless tobacco user [facility] Work Phone: End: 06-15-2016 History of tobacco use User of smokeless tobacco [facility] Work Phone: Start: 12-10-2021 End: 12-13-2022 Alcohol intake Current non-drinker of alcohol (finding) [facility] Start: 09-15-2019 History SDOH Social Connections Phone 5 [facility] Start: 09-15-2019 History SDOH Social Connections Anabaptist 3 [facility] Start: 09-15-2019 History SDOH Social Connections Membership 1 [facility] Start: 09-15-2019 History SDOH Social Connections Living 7 [facility] Start: 09-15-2019 History SDOH Physical Activity MPS 6 [facility] Start: 09-15-2019 History SDOH Transport Med 2 [facility] Start: 09-15-2019 Education 13 [facility] Start: 10-01-2015 End: 07-23-2022 Tobacco Comment 1/2 ppd [facility] Start: 1995 Sex Assigned At Female [facility] Start: 11-30-2021 End: 07-23-2022 Exposure to SARS-CoV-2 (event) Not sure [facility] Start: 09-15-2019 End: 10-28-2022 Social connection and isolation panel [facility] Do you belong to any clubs or organizations such as gnosticist groups, unions, fraternal or athletic groups, or school groups? Yes [facility] Are you now , , , , never or living with a partner? Never [facility] How hard is it for y ou to pay for the very basics like food, housing, medical care, and heating Not hard at all [facility] Do you feel stress - tense, restless, nervous, or anxious, or unable to sleep at night because your mind is troubled all the time - these days [OSQ] To some extent [facility] (I/We) worried wheth er (my/our) food would run out before (I/we) got money to buy more. Never true [facility] Start: 07-22-2021 Gender identity Identifies as female gender (finding) [facility] Start: 07-22-2021 Sexual orientation Heterosexual (finding) [facility] Clinical Notes 12-11-2016 to 08-23-2023 Telephone Encounter - Lynne Perez MA - 08/23/2023 8:06 AM Kurits Green APRN.BUSINESS SUPPORT - 12/11/2022 10:09 AM EDTLucas Green APRN.[facility] - 10/28/2022 4:48 PM ESTPatient Instructions Note Date & Type Note Facility 08-23-2023 Miscellaneous Notes Formattin g of this note is different from the original. pharmacy electronically requesting refills as follows: Last seen 12/11/22 . Last refill 05/25/23 . Requested Prescriptions Pending Prescriptions Disp Refills traZODone (DESYREL) 100 mg tablet [Pharmacy Med Name: traZODone HCl 100 MG Oral Tablet] 90 tablet 0 Sig: take 1 tablet by mouth once daily at bedtime Please review and advise. Lynne Perez MA documented in this encounter [facility] 12-11-2022 Note HNO ID: [id number] Author: Lucas Green APRN.[facility] Service: ? Author Type: Nurse Practitioner Type: Progress Notes Filed: 12/13/2022 10:38 PM Note Text: This note was created using TheraCoatriter. Subjective Lucas Woodson is a 27 year old female here today for anxiety, depression. I reviewed past medical, surgical, social, and family histories today and updated chart. Allergies, chronic medications, and supplements were also reviewed. 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 Behind on planning for work Has a lot going on at home No history of ADHD as a child but didn't really go to the doctor She struggled a lot in school Did not graduate high school traditionally, got her GED later Tried college and did not work out Lexapro numbed her to everything so does not want to go back on this Was on Prozac, abilify in the past Buspar - ineffective She does take trazodone to help her sleep, it was decreased but feels it needs increased again Last time she saw a counselor was when she was a teenager She would like to see a counselor, work schedule has been difficult Dry skin to hands - Palmar and dorsal surface, in the winter will crack and bleed Tops of hands get itching at times Doesn't really bother her until it cracks No history of asthma She does have environmental allergies PAST MEDICAL HISTORY Diagnosis Date Anemia During Chlamydia 2013 Depression Dysmenorrhea Dyspareunia Generalized anxiety disorder Other kyphoscoliosis and scoliosis Panic attacks PAST SURGICAL HISTORY Procedure Laterality Date PAST SURGICAL HISTORY OF pylionidal dimple closure -as baby SALPINGECTOMY Bilateral 02/10/2022 Dr. Teran TOOTH EXTRACTION 2015 wisdom teeth ALLERGIES Phenergan [Promethazine Hcl] and Zoloft [Sertraline Hcl] MEDICATIONS traZODone (DESYREL) 50 mg tablet Take 1 tablet by mouth daily at bedtime. Lactobac no.41/Bifidobact no.7 (PROBIOTIC-10 ORAL) Take by mouth. Multivitamin capsule Take 1 capsule by mouth once daily. fluticasone (FLONASE) 50 mcg/actuation nasal spray Use 2 Sprays in each nostril once daily. Rinse mouth after use. FAMILY HISTORY Problem Relation Age of Onset Cancer Maternal Grandmother lung and non-hodgkins/Ovarian Asthma Mother Cervical Cancer Mother 40's other (Other, goiter) Mother had tyroidectomy Heart Attack Maternal Grandfather 48 Social History Tobacco Use Smoking status: Former Packs/day: 0.50 Years: 6.00 Pack years: 3.00 Types: Cigarettes Quit date: 07/02/2016 Years since quittin.4 Smokeless tobacco: Former Quit date: 06/15/2016 Tobacco comments: 1/2 ppd Vaping Use Vaping Use: Never used Substance Use Topics Alcohol use: No Drug use: Never Review of Systems Constitutional: Negative for appetite change, chills, fatigue, fever and unexpected weight change. HENT: Negative for congestion, ear pain, rhinorrhea and sore throat. Eyes: Negative for pain, discharge, itching and visual disturbance. Respiratory: Negative for cough, shortness of breath and wheezing. Cardiovascular: Negative for chest pain, palpitations and leg swelling. Gastrointestinal: Negative for abdominal pain, constipation, diarrhea, nausea and vomiting. Genitourinary: Negative for difficulty urinating. Musculoskeletal: Negative for arthralgias. Neurological: Negative for dizziness, tremors, weakness and headaches. Psychiatric/Behavioral: Positive for dysphoric mood and sleep disturbance. The patient is nervous/anxious. Objective BP 110/70 Pulse 72 Temp 37 ?C (98.6 ?F) Ht 161.3 cm (5' 3.5 ) Wt 56.7 kg (125 lb) LMP 07/17/2022 (Exact Date) SpO2 98% BMI 21.80 kg/m? Physical Exam HENT: Head: Normocephalic and atraumatic. Eyes: Conjunctiva/sclera: Conjunctivae normal. Pupils: Pupils are equal, round, and reactive to light. Cardiovascular: Rate and Rhythm: Normal rate and regular rhythm. Pulses: Normal pulses. Heart sounds: Normal heart sounds. Pulmonary: Effort: Pulmonary effort is normal. Breath sounds: Normal breath sounds. Musculoskeletal: Cervical back: Normal range of motion and neck supple. Lymphadenopathy: Cervical: No cervical adenopathy. Skin: General: Skin is warm and dry. Comments: Dry skin to bilateral hands Neurological: General: No focal deficit present. Mental Status: She is alert and oriented to person, place, and time. Cranial Nerves: No cranial nerve deficit. Sensory: Sensation is intact. Motor: Motor function is intact. Coordination: Coordination is intact. Psychiatric: Attention and Perception: Attention and perception norm (more content not included)... [facility] 12-11-2022 History of Presen t illness Narrative This note was created using [employer]. Subjective Lucas Woodson is a 27 year old female here today for anxiety, depression. I reviewed past medical, surgical, social, and family histories today and updated chart. Allergies, chronic medications, and supplements were also reviewed. 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 Behind on planning for work Has a lot going on at home No history of ADHD as a child but didn't really go to the doctor She struggled a lot in school Did not graduate high school traditionally, got her GED later Tried college and did not work out Lexapro numbed her to everything so does not want to go back on this Was on Prozac, abilify in the past Buspar - ineffective She does take trazodone to help her sleep, it was decreased but feels it needs increased again Last time she saw a counselor was when she was a teenager She would like to see a counselor, work schedule has been difficult Dry skin to hands - Palmar and dorsal surface, in the winter will crack and bleed Tops of hands get itching at times Doesn't really bother her until it cracks No history of asthma She does have environmental allergies PAST MEDICAL HISTORY Diagnosis Date Anemia During Chlamydia 2013 Depression Dysmenorrhea Dyspareunia Generalized anxiety disorder Other kyphoscoliosis and scoliosis Panic attacks PAST SURGICAL HISTORY Procedure Laterality Date PAST SURGICAL HISTORY OF pylionidal dimple closure -as baby SALPINGECTOMY Bilateral 02/10/2022 Dr. Teran TOOTH EXTRACTION 2015 wisdom teeth ALLERGIES Phenergan [Promethazine Hcl] and Zoloft [Sertraline Hcl] MEDICATIONS traZODone (DESYREL) 50 mg tablet Take 1 tablet by mouth daily at bedtime. Lactobac no.41/Bifidobact no.7 (PROBIOTIC-10 ORAL) Take by mouth. Multivitamin capsule Take 1 capsule by mouth once daily. fluticasone (FLONASE) 50 mcg/actuation nasal spray Use 2 Sprays in each nostril once daily. Rinse mouth after use. FAMILY HISTORY Problem Relation Age of Onset Cancer Maternal Grandmother lung and non-hodgkins/Ovarian Asthma Mother Cervical Cancer Mother 40's other (Other, goiter) Mother had tyroidectomy Heart Attack Maternal Grandfather 48 Social History Tobacco Use Smoking status: Former Packs/day: 0.50 Years: 6.00 Pack years: 3.00 Types: Cigarettes Quit date: 07/02/2016 Years since quittin.4 Smokeless tobacco: Former Quit date: 06/15/2016 Tobacco comments: 1/2 ppd Vaping Use Vaping Use: Never used Substance Use Topics Alcohol use: No Drug use: Never Review of Systems Constitutional: Negative for appetite change, chills, fatigue, fever and unexpected weight change. HENT: Negative for congestion, ear pain, rhinorrhea and sore throat. Eyes: Negative for pain, discharge, itching and visual disturbance. Respiratory: Negative for cough, shortness of breath and wheezing. Cardiovascular: Negative for chest pain, palpitations and leg swelling. Gastrointestinal: Negative for abdominal pain, constipation, diarrhea, nausea and vomiting. Genitourinary: Negative for difficulty urinating. Musculoskeletal: Negative for arthralgias. Neurological: Negative for dizziness, tremors, weakness and headaches. Psychiatric/Behavioral: Positive for dysphoric mood and sleep disturbance. The patient is nervous/anxious. Objective BP 110/70 Pulse 72 Temp 37 C (98.6 F) Ht 161.3 cm (5' 3.5 ) Wt 56.7 kg (125 lb) LMP 07/17/2022 (Exact Date) SpO2 98% BMI 21.80 kg/m Physical Exam HENT: Head: Normocephalic and atraumatic. Eyes: Conjunctiva/sclera: Conjunctivae normal. Pupils: Pupils are equal, round, and reactive to light. Cardiovascular: Rate and Rhythm: Normal rate and regular rhythm. Pulses: Normal pulses. Heart sounds: Normal heart sounds. Pulmonary: Effort: Pulmonary effort is normal. Breath sounds: Normal breath sounds. Musculoskeletal: Cervical back: Normal range of motion and neck supple. Lymphadenopathy: Cervical: No cervical adenopathy. Skin: General: Skin is warm and dry. Comments: Dry skin to bilateral hands Neurological: General: No focal deficit present. Mental Status: She is alert and oriented to person, place, and time. Cranial Nerves: No cranial nerve deficit. Sensory: Sensation is intact. Motor: Motor function is intact. Coordination: Coordination is intact. Psychiatric: Attention and Perception: Attention and perception normal. Mood and Affect: Affect normal. Mood is anxious and depressed. Affect is not labile or inappropriate. Speech: Speech normal. Behavior: Behavior normal. Behavior is not agitated. Thought Content: Thought content normal. Thought content does not include suicidal ideation. Cognition and Memory: Cognition normal. Judgment: Judgment normal. Judgment is not impulsive. PHQ-9 03/21/2021 10/28/2022 12/11/2022 Score 1 0 8 (0-4) minimal depression, (5-9) mild depression, (10-14) moderate depression, (15-19) moderately severe depression, (20-27) severe depression ROSANA - 7 SCORES 12/11/2022 ROSANA-7 Score 15 (0-4) minimal anxiety, (5-9) mild anxiety, (10-14) moderate anxiety, (15-21) severe anxiety ASSESSMENT/PLAN: 1. ROSANA (generalized anxiety disorder) - ICD9: 300.02, ICD10: F41.1 (primary diagnosis) Wellbutrin 150 mg BID. Discussed medication action, dosing, side effects, risks, and benefits. Patient verbalizes understanding. Check labs FU 6-8 weeks - COMP METABOLIC PANEL - CBC - TSH BLD - T4 FREE/FREE THYROX 2. Mild episode of recurrent major depressive disorder (HCC) - ICD9: 296.31, ICD10: F33.0 Wellbutrin 150 mg BID. Discussed medication action, dosing, side effects, risks, and benefits. Patient verbalizes understanding. Check labs FU 6-8 weeks - BUPROPION HCL SR 150 MG TABLET,12 HR SUSTAINED-RELEASE - COMP METABOLIC PANEL - CBC - TSH BLD - T4 FREE/FREE THYROX 3. Chronic dermatitis of hands - ICD9: 692.9, ICD10: L30.9 - Topical steriod tx with Rx for steriod cream/ointment- see orders - discussed skin care of rash - follow up if symptoms persist or worsen. 4. Thyroid disorder screening - ICD9: V77.0, ICD10: Z13.29 - TSH BLD - T4 FREE/FREE THYROX 5. Screening for lipid disorders - ICD9: V77.91, ICD10: Z13.220 - LIPID PANEL BASIC Lucas Green APRN.BUSINESS SUPPORT documented in this encounter [facility] 10-28-2022 Note HNO ID: [id number] Author: Lucas Green APRN.BUSINESS SUPPORT Service: ? Author Type: Nurse Practitioner Type: Progress Notes Filed: 10/28/2022 9:54 PM Note Text: VIRTUAL VISIT PROGRESS NOTE This is a virtual visit using [employer] video visit. It required patient-provider interaction for the medical decision making as documented below. Lucas Woodson is a 27 year old female seen for anxiety, insomnia follow-up. Stopped her lexapro She has been doing well without it Taking trazodone every night for sleep and it helps a lot Exercises MVI and probiotic everyday Feels great Diet is really good too - less sugar, more vegetables Migraines - stable has not needed the imitrex for a long time Just takes ibuprofen as needed Sinus infection not too long ago started flonase at night and it helps HISTORY REVIEWED (electronic chart updated): PAST MEDICAL HISTORY Diagnosis Date Anemia During Chlamydia 2013 Depression Dysmenorrhea Dyspareunia Generalized anxiety disorder Other kyphoscoliosis and scoliosis Panic attacks PAST SURGICAL HISTORY Procedure Laterality Date PAST SURGICAL HISTORY OF pylionidal dimple closure -as baby SALPINGECTOMY Bilateral 02/10/2022 Dr. Teran TOOTH EXTRACTION 2015 wisdom teeth FAMILY HISTORY Problem Relation Age of Onset Cancer Maternal Grandmother lung and non-hodgkins/Ovarian Asthma Mother Cervical Cancer Mother 40's other (Other, goiter) Mother had tyroidectomy Heart Attack Maternal Grandfather 48 Social History Tobacco Use Smoking status: Former Packs/day: 0.50 Years: 6.00 Pack years: 3.00 Types: Cigarettes Quit date: 07/02/2016 Years since quittin.3 Smokeless tobacco: Former Quit date: 06/15/2016 Tobacco comments: 1/2 ppd Vaping Use Vaping Use: Never used Substance Use Topics Alcohol use: No Drug use: Never Current Outpatient Medications Medication Sig traZODone (DESYREL) 50 mg tablet Take 1 tablet by mouth daily at bedtime. Lactobac no.41/Bifidobact no.7 (PROBIOTIC-10 ORAL) Take by mouth. Multivitamin capsule Take 1 capsule by mouth once daily. fluticasone (FLONASE) 50 mcg/actuation nasal spray Use 2 Sprays in each nostril once daily. Rinse mouth after use. No current facility-administered medications for this visit. ALLERGIES Allergen Reactions Phenergan [Prometha* Other: See Comments Legs very restless Zoloft [Sertraline * Intolerance heart palpations,, out of skin feeling Review of Systems Constitutional: Negative for chills, diaphoresis, fever, malaise/fatigue and weight loss. HENT: Negative for congestion, ear discharge, ear pain, nosebleeds and sore throat. Eyes: Negative for blurred vision, photophobia, pain, discharge and redness. Respiratory: Negative for cough, sputum production, shortness of breath and wheezing. Cardiovascular: Negative for chest pain, palpitations and leg swelling. Gastrointestinal: Negative for abdominal pain, constipation, diarrhea, nausea and vomiting. Musculoskeletal: Negative for myalgias. Skin: Negative for itching and rash. Neurological: Negative for dizziness, tingling, focal weakness, loss of consciousness, weakness and headaches. Endo/Heme/Allergies: Negative for environmental allergies. Psychiatric/Behavioral: Negative for depression. The patient has insomnia. The patient is not nervous/anxious. PHYSICAL EXAMINATION: VIDEO EXAM: (if completed, performed via video enabled technology) GENERAL: alert and appropriate, in no distress, well-hydrated, well nourished, and happy, smiling, interactive SKIN: no rash noted HEAD: normocephalic, no abnormality or lesion noted EYES: no injection and visual acuity is grossly normal EARS: hearing grossly normal NOSE: external nose normal without rhinorrhea RESPIRATORY: breathing non-labored NEUROLOGIC: no obvious deficit ASSESSMENT: (F41.1) ROSANA (generalized anxiety disorder) (primary encounter diagnosis) (G47.00) Insomnia, unspecified type (G43.909) Migraine, unspecified, without mention of intractable migraine without mention of status migrainosus PLAN: Stable off Lexapro Continue trazodone 50 mg at bedtime Migraines - stable on ibuprofen prn FU 6 months for well adult exam Lucas Green, OPTICAL MECHANIC APPRENTICE.[facility] 10-28-2022 History of Presen t illness Narrative VIRTUAL VISIT PROGRESS NOTE This is a virtual visit using [employer] video visit. It required patient-provider interaction for the medical decision making as documented below. Lucassheldon Woodson is a 27 year old female seen for anxiety, insomnia follow-up. Stopped her lexapro She has been doing well without it Taking trazodone every night for sleep and it helps a lot Exercises MVI and probiotic everyday Feels great Diet is really good too - less sugar, more vegetables Migraines - stable has not needed the imitrex for a long time Just takes ibuprofen as needed Sinus infection not too long ago started flonase at night and it helps HISTORY REVIEWED (electronic chart updated): PAST MEDICAL HISTORY Diagnosis Date Anemia During Chlamydia 2013 Depression Dysmenorrhea Dyspareunia Generalized anxiety disorder Other kyphoscoliosis and scoliosis Panic attacks PAST SURGICAL HISTORY Procedure Laterality Date PAST SURGICAL HISTORY OF pylionidal dimple closure -as baby SALPINGECTOMY Bilateral 02/10/2022 Dr. Trean TOOTH EXTRACTION 2015 wisdom teeth FAMILY HISTORY Problem Relation Age of Onset Cancer Maternal Grandmother lung and non-hodgkins/Ovarian Asthma Mother Cervical Cancer Mother 40's other (Other, goiter) Mother had tyroidectomy Heart Attack Maternal Grandfather 48 Social History Tobacco Use Smoking status: Former Packs/day: 0.50 Years: 6.00 Pack years: 3.00 Types: Cigarettes Quit date: 07/02/2016 Years since quittin.3 Smokeless tobacco: Former Quit date: 06/15/2016 Tobacco comments: 1/2 ppd Vaping Use Vaping Use: Never used Substance Use Topics Alcohol use: No Drug use: Never Current Outpatient Medications Medication Sig traZODone (DESYREL) 50 mg tablet Take 1 tablet by mouth daily at bedtime. Lactobac no.41/Bifidobact no.7 (PROBIOTIC-10 ORAL) Take by mouth. Multivitamin capsule Take 1 capsule by mouth once daily. fluticasone (FLONASE) 50 mcg/actuation nasal spray Use 2 Sprays in each nostril once daily. Rinse mouth after use. No current facility-administered medications for this visit. ALLERGIES Allergen Reactions Phenergan [Prometha* Other: See Comments Legs very restless Zoloft [Sertraline * Intolerance heart palpations,, out of skin feeling Review of Systems Constitutional: Negative for chills, diaphoresis, fever, malaise/fatigue and weight loss. HENT: Negative for congestion, ear discharge, ear pain, nosebleeds and sore throat. Eyes: Negative for blurred vision, photophobia, pain, discharge and redness. Respiratory: Negative for cough, sputum production, shortness of breath and wheezing. Cardiovascular: Negative for chest pain, palpitations and leg swelling. Gastrointestinal: Negative for abdominal pain, constipation, diarrhea, nausea and vomiting. Musculoskeletal: Negative for myalgias. Skin: Negative for itching and rash. Neurological: Negative for dizziness, tingling, focal weakness, loss of consciousness, weakness and headaches. Endo/Heme/Allergies: Negative for environmental allergies. Psychiatric/Behavioral: Negative for depression. The patient has insomnia. The patient is not nervous/anxious. PHYSICAL EXAMINATION: VIDEO EXAM: (if completed, performed via video enabled technology) GENERAL: alert and appropriate, in no distress, well-hydrated, well nourished, and happy, smiling, interactive SKIN: no rash noted HEAD: normocephalic, no abnormality or lesion noted EYES: no injection and visual acuity is grossly normal EARS: hearing grossly normal NOSE: external nose normal without rhinorrhea RESPIRATORY: breathing non-labored NEUROLOGIC: no obvious deficit ASSESSMENT: (F41.1) ROSANA (generalized anxiety disorder) (primary encounter diagnosis) (G47.00) Insomnia, unspecified type (G43.909) Migraine, unspecified, without mention of intractable migraine without mention of status migrainosus PLAN: Stable off Lexapro Continue trazodone 50 mg at bedtime Migraines - stable on ibuprofen prn FU 6 months for well adult exam Lucas Green APRN.BUSINESS SUPPORT documented in this encounter [facility] 10-27-2022 Miscellaneous Notes Formattin g of this note might be different from the original. Left message on patient voicemail appointment needed . Last seen 08/26/2021 Patient requesting refills: Last office visit over a year ago. Need apt. Requested Prescriptions Pending Prescriptions Disp Refills traZODone (DESYREL) 50 mg tablet 30 tablet 5 Sig: Take 1 tablet by mouth daily at bedtime. Please review and advise. Hannah Barnes MA documented in this encounter [facility] 09-16-2022 Note HNO ID: [id number] Author: Monika Burnett MA Service: ? Author Type: Artifacts Conservator Type: Progress Notes Filed: 09/16/2022 3:43 PM Note Text: ED Follow Up: Patient discharged from [facility] ED on 09/14/22. 1. How are you feeling since your ED visit? Left VM for pt to call the office Have your symptoms improved or resolved? Left VM for pt to call the office 2. Were you prescribed any medications while in the ED or advised to stop any medication? Left VM for pt to call the office - If yes, were you able to fill your prescriptions? Left VM for pt to call the office -if stopped medication, what was the medication? Left VM for pt to call the office 3. Were you advised to schedule a follow up appointment with your provider? Left VM for pt to call the office - If no, Do you feel like you need an appointment scheduled? Left VM for pt to call the office - If yes, Do you need this scheduled now or has this already been scheduled? Left VM for pt to call the office 4. Were you able to contact the office or kindergarten instructional assistant provider prior to your ED visit? Left VM for pt to call the office 5. Is there anything else I can do for you today? Left VM for pt to call the office [facility] 09-16-2022 History of Presen t illness Narrative ED Follow Up: Patient discharged from [facility] ED on 09/14/22. 1. How are you feeling since your ED visit? Left VM for pt to call the office Have your symptoms improved or resolved? Left VM for pt to call the office 2. Were you prescribed any medications while in the ED or advised to stop any medication? Left VM for pt to call the office - If yes, were you able to fill your prescriptions? Left VM for pt to call the office -if stopped medication, what was the medication? Left VM for pt to call the office 3. Were you advised to schedule a follow up appointment with your provider? Left VM for pt to call the office - If no, Do you feel like you need an appointment scheduled? Left VM for pt to call the office - If yes, Do you need this scheduled now or has this already been scheduled? Left VM for pt to call the office 4. Were you able to contact the office or kindergarten instructional assistant provider prior to your ED visit? Left VM for pt to call the office 5. Is there anything else I can do for you today? Left VM for pt to call the office documented in this encounter [facility] 09-16-2022 Note Patient Outreach (AG INTMLW) LUCAS WOODSON ([id number]) 1995 F Date Time Provider Department 09/16/22 MONIKA BURNETT AGINTMLW During your visit today, we recorded the following information about you: Monika Burnett MA 09/16/2022 3:43 PM Signed ED Follow Up: Patient discharged from [facility] ED on 09/14/22. 1. How are you feeling since your ED visit? Left for pt to call the office Have your symptoms improved or resolved? Left for pt to call the office 2. Were you prescribed any medications while in the ED or advised to stop any medication? Left VM for pt to call the office - If yes, were you able to fill your prescriptions? Left VM for pt to call the office -if stopped medication, what was the medication? Left VM for pt to call the office 3. Were you advised to schedule a follow up appointment with your provider? Left for pt to call the office - If no, Do you feel like you need an appointment scheduled? Left VM for pt to call the office - If yes, Do you need this scheduled now or has this already been scheduled? Left VM for pt to call the office 4. Were you able to contact the office or kindergarten instructional assistant provider prior to your ED visit? Left for pt to call the office 5. Is there anything else I can do for you today? Left for pt to call the office Allergies As of Date: 09/16/2022 Noted Allergy Reaction PHENERGAN (PROMETHAZINE HCL) 07/28/2016 14 - Other: See Comments Comments: Legs very restless ZOLOFT (SERTRALINE HCL) 03/04/2015 5 - Intolerance Comments: heart palpations,, out of skin feeling Date Reviewed: 08/22/2022 Reviewed by: Tu Rivers APRN.BUSINESS SUPPORT - Fully Assessed Prescriptions as of 09/16/2022 - traZODone (DESYREL) 50 mg tablet Take 1 tablet by mouth daily at bedtime. - escitalopram oxalate (LEXAPRO) 10 mg tablet Take 1 tablet by mouth once daily. - fluticasone (FLONASE) 50 mcg/actuation nasal spray Use 2 Sprays in each nostril once daily. Rinse mouth after use. - cetirizine (ZYRTEC) 10 mg tablet Take 1 tablet by mouth once daily. - ondansetron (ZOFRAN) 4 mg tablet Take 1 tablet by mouth every 8 hours as needed for nausea/vomiting. - SUMAtriptan (IMITREX) 25 mg tablet Take 1 tablet by mouth as needed for Migraine Headache (see administration instructions). at onset of headache. May repeat after 2 hours. Problem List As Of Date 09/16/2022 Noted Resolved Anxiety and depression [F41.9, F32.A] 12/18/2014 03/25/2017 Pelvic pain in [O26.899, R10.2] 07/16/2016 03/25/2017 Quit smoking [Z87.891] 07/16/2016 03/25/2017 History of depression [Z86.59] 07/16/2016 03/25/2017 Nausea and vomiting in [O21.9] 07/16/2016 03/25/2017 Encounter for supervision of normal i*10/12/2016 03/25/2017 Antepartum anemia complicating in thi*12/11/2016 03/25/2017 ROSANA (generalized anxiety disorder) [F41.1] 09/27/2019 Insomnia [G47.00] 09/27/2019 History of head injury [Z87.828] 10/31/2019 Migraine, unspecified, without mention of intra*03/10/2011 Encounter Status:Closed by MONIKA BURNETT on 09/16/22 [facility] 08-22-2022 Note HNO ID: [id number] Author: Tu Rivers APRN.BUSINESS SUPPORT Service: ? Author Type: Nurse Practitioner Type: Progress Notes Filed: 08/22/2022 11:43 AM Note Text: Subjective HPI Nontoxic-appearing female presents urgent care chief complaint vaginal discharge. Duration of symptoms 3 days. Associated symptoms vaginal discharge itching. Patient states possible yeast infection. Recently did finish antibiotics. Has not used any OTC medications. Denies any significant pain. Denies concerns for STDs. Denies chance of . Denies any fever body aches chills productive cough chest pain shortness of breath pleuritic pain hemoptysis nausea vomiting abdominal pain change in bowel or bladder habits. Past medical history prescription medication use and allergies reviewed. .Patient presents with: Vaginal Discharge: itching, was on antibiotic x 3 days PAST MEDICAL HISTORY Diagnosis Date Anemia During Chlamydia 2013 Depression Dysmenorrhea Dyspareunia Generalized anxiety disorder Other kyphoscoliosis and scoliosis Panic attacks PAST SURGICAL HISTORY Procedure Laterality Date PAST SURGICAL HISTORY OF pylionidal dimple closure -as baby SALPINGECTOMY Bilateral 02/10/2022 Dr. Teran TOOTH EXTRACTION 2015 wisdom teeth ALLERGIES Phenergan [Promethazine Hcl] and Zoloft [Sertraline Hcl] MEDICATIONS traZODone (DESYREL) 50 mg tablet Take 1 tablet by mouth daily at bedtime. escitalopram oxalate (LEXAPRO) 10 mg tablet Take 1 tablet by mouth once daily. (Patient not taking: Reported on 08/11/2022) fluticasone (FLONASE) 50 mcg/actuation nasal spray Use 2 Sprays in each nostril once daily. Rinse mouth after use. (Patient not taking: Reported on 08/11/2022) cetirizine (ZYRTEC) 10 mg tablet Take 1 tablet by mouth once daily. (Patient not taking: Reported on 08/11/2022) ondansetron (ZOFRAN) 4 mg tablet Take 1 tablet by mouth every 8 hours as needed for nausea/vomiting. (Patient not taking: Reported on 12/10/2021 ) SUMAtriptan (IMITREX) 25 mg tablet Take 1 tablet by mouth as needed for Migraine Headache (see administration instructions). at onset of headache. May repeat after 2 hours. (Patient not taking: Reported on 07/23/2022) FAMILY HISTORY Problem Relation Age of Onset Cancer Maternal Grandmother lung and non-hodgkins/Ovarian Asthma Mother Cervical Cancer Mother 40's other (Other, goiter) Mother had tyroidectomy Heart Attack Maternal Grandfather 48 Social History Tobacco Use Smoking status: Former Packs/day: 0.50 Years: 6.00 Pack years: 3.00 Types: Cigarettes Quit date: 07/02/2016 Years since quittin.1 Smokeless tobacco: Former Quit date: 06/15/2016 Tobacco comments: 1/2 ppd Vaping Use Vaping Use: Never used Substance Use Topics Alcohol use: No Drug use: Never BP 124/72 Pulse 88 Temp 36.8 ?C (98.3 ?F) Resp 16 Wt 59.4 kg (131 lb) LMP 07/17/2022 (Exact Date) SpO2 99% BMI 21.80 kg/m? Review of Systems Constitutional: Negative for chills, fever and malaise/fatigue. HENT: Negative for congestion, ear discharge, ear pain, sinus pain and sore throat. Eyes: Negative for blurred vision, pain, discharge and redness. Respiratory: Negative for cough, hemoptysis, sputum production, shortness of breath, wheezing and stridor. Cardiovascular: Negative for chest pain. Gastrointestinal: Negative for abdominal pain, diarrhea, nausea and vomiting. Genitourinary: Negative. Musculoskeletal: Negative for myalgias. Skin: Negative for itching and rash. Neurological: Negative for dizziness and headaches. Objective Physical Exam Constitutional: General: She is not in acute distress. Appearance: She is not diaphoretic. HENT: Head: Normocephalic. Mouth/Throat: Mouth: Mucous membranes are moist. Pharynx: Oropharynx is clear. No oropharyngeal exudate or posterior oropharyngeal erythema. Eyes: Conjunctiva/sclera: Conjunctivae normal. Pupils: Pupils are equal, round, and reactive to light. Cardiovascular: Rate and Rhythm: Normal rate and regular rhythm. Heart sounds: Normal heart sounds. Pulmonary: Effort: Pulmonary effort is normal. No tachypnea, accessory muscle usage or respiratory distress. Breath sounds: Normal breath sounds. No stridor. No wheezing, rhonchi or rales. Abdominal: Palpations: Abdomen is soft. Tenderness: There is no abdominal tenderness. There is no right CVA tenderness, left CVA tenderness, guarding or rebound. Musculoskeletal: Cervical back: Normal range of motion and neck supple. No rigidity or tenderness. Lymphadenopathy: Cervical: No cervical adenopathy. Skin: General: Skin is warm and dry. Neurological: Mental Status: She is alert and oriented to person, place, and time. ASSESSMENT/PLAN: 1. Vaginal discharge - ICD9: 623.5, ICD10: N89.8 - PATIENCE / TRICHOMONAS AMPLIFICATION - BACTERIAL VAGINOSIS AMPLIFICATION Patient diagnosed with vaginal disc (more content not included)... [facility] 08-22-2022 History of Presen t illness Narrative Subjective HPI Nontoxic-appearing female presents urgent care chief complaint vaginal discharge. Duration of symptoms 3 days. Associated symptoms vaginal discharge itching. Patient states possible yeast infection. Recently did finish antibiotics. Has not used any OTC medications. Denies any significant pain. Denies concerns for STDs. Denies chance of . Denies any fever body aches chills productive cough chest pain shortness of breath pleuritic pain hemoptysis nausea vomiting abdominal pain change in bowel or bladder habits. Past medical history prescription medication use and allergies reviewed. .Patient presents with: Vaginal Discharge: itching, was on antibiotic x 3 days PAST MEDICAL HISTORY Diagnosis Date Anemia During Chlamydia 2012 Depression Dysmenorrhea Dyspareunia Generalized anxiety disorder Other kyphoscoliosis and scoliosis Panic attacks PAST SURGICAL HISTORY Procedure Laterality Date PAST SURGICAL HISTORY OF pylionidal dimple closure -as baby SALPINGECTOMY Bilateral 02/10/2022 Dr. Teran TOOTH EXTRACTION 2015 wisdom teeth ALLERGIES Phenergan [Promethazine Hcl] and Zoloft [Sertraline Hcl] MEDICATIONS traZODone (DESYREL) 50 mg tablet Take 1 tablet by mouth daily at bedtime. escitalopram oxalate (LEXAPRO) 10 mg tablet Take 1 tablet by mouth once daily. (Patient not taking: Reported on 08/11/2022) fluticasone (FLONASE) 50 mcg/actuation nasal spray Use 2 Sprays in each nostril once daily. Rinse mouth after use. (Patient not taking: Reported on 08/11/2022) cetirizine (ZYRTEC) 10 mg tablet Take 1 tablet by mouth once daily. (Patient not taking: Reported on 08/11/2022) ondansetron (ZOFRAN) 4 mg tablet Take 1 tablet by mouth every 8 hours as needed for nausea/vomiting. (Patient not taking: Reported on 12/10/2021 ) SUMAtriptan (IMITREX) 25 mg tablet Take 1 tablet by mouth as needed for Migraine Headache (see administration instructions). at onset of headache. May repeat after 2 hours. (Patient not taking: Reported on 07/23/2022) FAMILY HISTORY Problem Relation Age of Onset Cancer Maternal Grandmother lung and non-hodgkins/Ovarian Asthma Mother Cervical Cancer Mother 40's other (Other, goiter) Mother had tyroidectomy Heart Attack Maternal Grandfather 48 Social History Tobacco Use Smoking status: Former Packs/day: 0.50 Years: 6.00 Pack years: 3.00 Types: Cigarettes Quit date: 07/02/2016 Years since quittin.1 Smokeless tobacco: Former Quit date: 06/15/2016 Tobacco comments: 1/2 ppd Vaping Use Vaping Use: Never used Substance Use Topics Alcohol use: No Drug use: Never BP 124/72 Pulse 88 Temp 36.8 C (98.3 F) Resp 16 Wt 59.4 kg (131 lb) LMP 07/17/2022 (Exact Date) SpO2 99% BMI 21.80 kg/m Review of Systems Constitutional: Negative for chills, fever and malaise/fatigue. HENT: Negative for congestion, ear discharge, ear pain, sinus pain and sore throat. Eyes: Negative for blurred vision, pain, discharge and redness. Respiratory: Negative for cough, hemoptysis, sputum production, shortness of breath, wheezing and stridor. Cardiovascular: Negative for chest pain. Gastrointestinal: Negative for abdominal pain, diarrhea, nausea and vomiting. Genitourinary: Negative. Musculoskeletal: Negative for myalgias. Skin: Negative for itching and rash. Neurological: Negative for dizziness and headaches. Objective Physical Exam Constitutional: General: She is not in acute distress. Appearance: She is not diaphoretic. HENT: Head: Normocephalic. Mouth/Throat: Mouth: Mucous membranes are moist. Pharynx: Oropharynx is clear. No oropharyngeal exudate or posterior oropharyngeal erythema. Eyes: Conjunctiva/sclera: Conjunctivae normal. Pupils: Pupils are equal, round, and reactive to light. Cardiovascular: Rate and Rhythm: Normal rate and regular rhythm. Heart sounds: Normal heart sounds. Pulmonary: Effort: Pulmonary effort is normal. No tachypnea, accessory muscle usage or respiratory distress. Breath sounds: Normal breath sounds. No stridor. No wheezing, rhonchi or rales. Abdominal: Palpations: Abdomen is soft. Tenderness: There is no abdominal tenderness. There is no right CVA tenderness, left CVA tenderness, guarding or rebound. Musculoskeletal: Cervical back: Normal range of motion and neck supple. No rigidity or tenderness. Lymphadenopathy: Cervical: No cervical adenopathy. Skin: General: Skin is warm and dry. Neurological: Mental Status: She is alert and oriented to person, place, and time. ASSESSMENT/PLAN: 1. Vaginal discharge - ICD9: 623.5, ICD10: N89.8 - PATIENCE / TRICHOMONAS AMPLIFICATION - BACTERIAL VAGINOSIS AMPLIFICATION Patient diagnosed with vaginal discharge. Vaginal self swabs obtained. Treat accordingly to test results. Patient was educated on supportive therapies. Patient will follow up with primary care provider as needed. Patient was instructed to immediately proceed to emergency room for any new, worsening, or symptoms lasting longer than anticipated. The patient's clinical presentation is otherwise unremarkable at this time. Based on exam and clinical finding, the patient is stable for discharge. Plan of care was discussed with patient. Patient verbalizes understanding and agrees to plan of care. This note was generated using Cloudability software. It may contain errors in wording, punctuation, or spelling. Tu Rivers APRN.CHERYL documented in this encounter [facility] [place] 08-11-2022 Note HNO ID: [id number] Author: Idalia Ochoa APRN.CNP Service: ? Author Type: Nurse Practitioner Type: Progress Notes Filed: 08/11/2022 11:44 AM Note Text: Subjective The history is provided by the patient. No parking enforcement officer was used. HPI Lucas Woodson is a 27 year old female who presents today for CC of sinus pressure and congestion. She started the first of July with uri symptoms, son was also sick at the same time. She states things have slightly gotten better, but in the past 24 hours significantly worsened with sinus pressure, drainage, and ear pressure. She has used sudafed, dayquil with short term relief. 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 BP 122/72 Pulse 76 Temp 36.9 ?C (98.4 ?F) Resp 16 Wt 59.4 kg (131 lb) LMP 07/17/2022 (Exact Date) SpO2 99% BMI 21.80 kg/m? Social History Tobacco Use Smoking status: Former Packs/day: 0.50 Years: 6.00 Pack years: 3.00 Types: Cigarettes Quit date: 07/02/2016 Years since quittin.1 Smokeless tobacco: Former Quit date: 06/15/2016 Tobacco comments: 1/2 ppd Vaping Use Vaping Use: Never used Substance Use Topics Alcohol use: No Drug use: Never PAST MEDICAL HISTORY Diagnosis Date Anemia During Chlamydia 2013 Depression Dysmenorrhea Dyspareunia Generalized anxiety disorder Other kyphoscoliosis and scoliosis Panic attacks I have confirmed and edited as necessary, the [facility] Review of Systems Constitutional: Negative for chills and fever. HENT: Positive for congestion and sinus pain. Negative for ear pain and sore throat. Post nasal drainage Respiratory: Negative for cough, sputum production, shortness of breath and wheezing. Cardiovascular: Negative for chest pain. Gastrointestinal: Negative for abdominal pain, diarrhea, nausea and vomiting. Musculoskeletal: Negative for myalgias. Neurological: Positive for headaches. Objective Physical Exam Vitals and nursing note reviewed. HENT: Head: Normocephalic and atraumatic. Right Ear: Ear canal and external ear normal. A middle ear effusion is present. Tympanic membrane is bulging. Left Ear: Ear canal and external ear normal. A middle ear effusion is present. Tympanic membrane is bulging. Nose: Mucosal edema, congestion and rhinorrhea present. Right Sinus: Maxillary sinus tenderness and frontal sinus tenderness present. Left Sinus: Maxillary sinus tenderness and frontal sinus tenderness present. Mouth/Throat: Pharynx: Uvula midline. No oropharyngeal exudate or posterior oropharyngeal erythema. Comments: Thick Cloudy Post Nasal Drainage Cardiovascular: Rate and Rhythm: Normal rate and regular rhythm. Heart sounds: Normal heart sounds. Pulmonary: Effort: Pulmonary effort is normal. Breath sounds: Normal breath sounds. Lymphadenopathy: Head: Right side of head: No submental, submandibular or tonsillar adenopathy. Left side of head: No submental, submandibular or tonsillar adenopathy. Cervical: No cervical adenopathy. Skin: General: Skin is warm and dry. Neurological: Mental Status: She is alert. Psychiatric: Mood and Affect: Affect normal. ASSESSMENT/PLAN: 1. Acute non-recurrent pansinusitis - ICD9: 461.8, ICD10: J01.40 - Will begin treatment with Augmentin 875 mg PO BID for 5 days - Supportive care with plenty of fluids, rest, and analgesia prn. - Follow up in one week if symptoms persist or worsen. - flonase, mucinex Diagnosis and treatment plan were discussed and questions were answered to the patient's satisfaction. Pt acknowledged understanding of concepts and follow up plan. Specific signs and symptoms that would indicate the need for higher level of care were discussed in detail warranting prompt ER evaluation. Idalia Ochoa APRN.[facility] 08-11-2022 Instructions Idalia Ochoa APRN.CNP - 08/11/2022 11:44 AM EST -Increase fluid intake. --Rest as much as possible. - Nasal saline spray, marie pot, flonase Take the entire course of antibiotics as prescribed. DO NOT stop taking it early, even if you are feeling better. -Monitor for signs of worsening infection: increased temperature, pain in face, ear pain or headaches or increase in nasal congestion/mucous that is not improving. -Educated patient on side effects of medication. documented in this encounter [facility] [place] 08-11-2022 History of Presen t illness Narrative Subjective The history is provided by the patient. No parking enforcement officer was used. HPI Lucas Woodson is a 27 year old female who presents today for CC of sinus pressure and congestion. She started the first of July with uri symptoms, son was also sick at the same time. She states things have slightly gotten better, but in the past 24 hours significantly worsened with sinus pressure, drainage, and ear pressure. She has used sudafed, dayquil with short term relief. 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 BP 122/72 Pulse 76 Temp 36.9 C (98.4 F) Resp 16 Wt 59.4 kg (131 lb) LMP 07/17/2022 (Exact Date) SpO2 99% BMI 21.80 kg/m Social History Tobacco Use Smoking status: Former Packs/day: 0.50 Years: 6.00 Pack years: 3.00 Types: Cigarettes Quit date: 07/02/2016 Years since quittin.1 Smokeless tobacco: Former Quit date: 06/15/2016 Tobacco comments: 1/2 ppd Vaping Use Vaping Use: Never used Substance Use Topics Alcohol use: No Drug use: Never PAST MEDICAL HISTORY Diagnosis Date Anemia During Chlamydia 2013 Depression Dysmenorrhea Dyspareunia Generalized anxiety disorder Other kyphoscoliosis and scoliosis Panic attacks I have confirmed and edited as necessary, the [facility] Review of Systems Constitutional: Negative for chills and fever. HENT: Positive for congestion and sinus pain. Negative for ear pain and sore throat. Post nasal drainage Respiratory: Negative for cough, sputum production, shortness of breath and wheezing. Cardiovascular: Negative for chest pain. Gastrointestinal: Negative for abdominal pain, diarrhea, nausea and vomiting. Musculoskeletal: Negative for myalgias. Neurological: Positive for headaches. Objective Physical Exam Vitals and nursing note reviewed. HENT: Head: Normocephalic and atraumatic. Right Ear: Ear canal and external ear normal. A middle ear effusion is present. Tympanic membrane is bulging. Left Ear: Ear canal and external ear normal. A middle ear effusion is present. Tympanic membrane is bulging. Nose: Mucosal edema, congestion and rhinorrhea present. Right Sinus: Maxillary sinus tenderness and frontal sinus tenderness present. Left Sinus: Maxillary sinus tenderness and frontal sinus tenderness present. Mouth/Throat: Pharynx: Uvula midline. No oropharyngeal exudate or posterior oropharyngeal erythema. Comments: Thick Cloudy Post Nasal Drainage Cardiovascular: Rate and Rhythm: Normal rate and regular rhythm. Heart sounds: Normal heart sounds. Pulmonary: Effort: Pulmonary effort is normal. Breath sounds: Normal breath sounds. Lymphadenopathy: Head: Right side of head: No submental, submandibular or tonsillar adenopathy. Left side of head: No submental, submandibular or tonsillar adenopathy. Cervical: No cervical adenopathy. Skin: General: Skin is warm and dry. Neurological: Mental Status: She is alert. Psychiatric: Mood and Affect: Affect normal. ASSESSMENT/PLAN: 1. Acute non-recurrent pansinusitis - ICD9: 461.8, ICD10: J01.40 - Will begin treatment with Augmentin 875 mg PO BID for 5 days - Supportive care with plenty of fluids, rest, and analgesia prn. - Follow up in one week if symptoms persist or worsen. - flonase, mucinex Diagnosis and treatment plan were discussed and questions were answered to the patient's satisfaction. Pt acknowledged understanding of concepts and follow up plan. Specific signs and symptoms that would indicate the need for higher level of care were discussed in detail warranting prompt ER evaluation. Idalia Ochoa APRN.CHERYL documented in this encounter [facility] [place] 07-23-2022 Note HNO ID: [id number] Author: Natalya Simpson APRN.CNP Service: ? Author Type: Nurse Practitioner Type: Progress Notes Filed: 07/23/2022 12:22 PM Note Text: This note was created using NoteWriter. Subjective Lucas Woodson is a 27 year old female. 27 year old female with no PMH presents with illness. Acute onset yesterday +sore throat Denies accompanying eye or ear complaints. Of note, she states she became sick with cough 4 days ago +congestion +headache She is accompanied by her son who has tested positive for RSV and strep earlier in the week. 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 No parking enforcement officer was used. Sore Throat This is a new problem. The current episode started yesterday. The problem has been unchanged. Neither side of throat is experiencing more pain than the other. There has been no fever. The pain is at a severity of 5/10. The pain is moderate. Associated symptoms include congestion, coughing and headaches. Pertinent negatives include no abdominal pain, diarrhea, drooling, ear discharge, ear pain, hoarse voice, plugged ear sensation, neck pain, shortness of breath, stridor, swollen glands, trouble swallowing or vomiting. She has had exposure to strep. She has had no exposure to mono. She has tried NSAIDs for the symptoms. The treatment provided mild relief. PAST MEDICAL HISTORY Diagnosis Date Anemia During Chlamydia 2013 Depression Dysmenorrhea Dyspareunia Generalized anxiety disorder Other kyphoscoliosis and scoliosis Panic attacks PAST SURGICAL HISTORY Procedure Laterality Date PAST SURGICAL HISTORY OF pylionidal dimple closure -as baby SALPINGECTOMY Bilateral 02/10/2022 Dr. Teran TOOTH EXTRACTION 2015 wisdom teeth ALLERGIES Phenergan [Promethazine Hcl] and Zoloft [Sertraline Hcl] MEDICATIONS traZODone (DESYREL) 50 mg tablet Take 1 tablet by mouth daily at bedtime. fluticasone (FLONASE) 50 mcg/actuation nasal spray Use 2 Sprays in each nostril once daily. Rinse mouth after use. cetirizine (ZYRTEC) 10 mg tablet Take 1 tablet by mouth once daily. escitalopram oxalate (LEXAPRO) 10 mg tablet Take 1 tablet by mouth once daily. ondansetron (ZOFRAN) 4 mg tablet Take 1 tablet by mouth every 8 hours as needed for nausea/vomiting. (Patient not taking: Reported on 12/10/2021 ) SUMAtriptan (IMITREX) 25 mg tablet Take 1 tablet by mouth as needed for Migraine Headache (see administration instructions). at onset of headache. May repeat after 2 hours. (Patient not taking: Reported on 07/23/2022) FAMILY HISTORY Problem Relation Age of Onset Cancer Maternal Grandmother lung and non-hodgkins/Ovarian Asthma Mother Cervical Cancer Mother 40's other (Other, goiter) Mother had tyroidectomy Heart Attack Maternal Grandfather 48 Social History Tobacco Use Smoking status: Former Packs/day: 0.50 Years: 6.00 Pack years: 3.00 Types: Cigarettes Quit date: 07/02/2016 Years since quittin.0 Smokeless tobacco: Former Quit date: 06/15/2016 Tobacco comments: 1/2 ppd Vaping Use Vaping Use: Never used Substance Use Topics Alcohol use: No Drug use: Never Review of Systems Constitutional: Negative for chills and fever. HENT: Positive for congestion, postnasal drip, rhinorrhea and sore throat. Negative for drooling, ear discharge, ear pain, hoarse voice and trouble swallowing. Eyes: Negative for photophobia, pain, discharge, redness and itching. Respiratory: Positive for cough. Negative for apnea, chest tightness, shortness of breath and stridor. Cardiovascular: Negative for chest pain, palpitations and leg swelling. Gastrointestinal: Negative for abdominal pain, diarrhea, nausea and vomiting. Musculoskeletal: Negative for arthralgias, back pain and neck pain. Skin: Negative for color change, pallor, rash and wound. Neurological: Positive for headaches. Negative for dizziness and facial asymmetry. Hematological: Negative for adenopathy. Does not bruise/bleed easily. Psychiatric/Behavioral: Negative for agitation and behavioral problems. Objective BP 118/66 Pulse 82 Temp 37 ?C (98.6 ?F) Resp 18 Wt 58 kg (127 lb 12.8 oz) LMP 07/17/2022 (Exact Date) SpO2 98% BMI 21.27 kg/m? Physical Exam Vitals and nursing note reviewed. Constitutional: General: She is not in acute distress. Appearance: Normal appearance. She is normal weight. She is not ill-appearing, toxic-appearing or diaphoretic. HENT: Head: Normocephalic and atraumatic. Right Ear: Ear canal and external ear normal. Left Ear: Ear canal and external ear normal. Nose: Nose normal. No congestion or rhinorrhea. Mouth/Throat: Mouth: Mucous membranes are moist. Pharynx: Posterior oropharyngeal erythema (marked posterior erythema. Uvula midline) present. No oropharyngeal exudate. Eyes: General: Right eye: No discharge. Left eye: No discharge. Extraocular Movements: Extrao (more content not included)... [facility] 07-23-2022 Instructions Natalya Simpson APRN.[facility] - 07/23/2022 12:18 PM EST RESPIRATORY INFECTION GENERAL INFORMATION: An upper respiratory tract infection, or cold, is a viral infection of the airway passages. It can be caused by any one of almost 200 different viruses. Common symptoms include a runny or stuffy nose, sneezing, watery eyes, sore throat, cough, and slight fever. Colds are contagious, especially during the first 3 or 4 days and cannot be cured by antibiotics. They are spread by coughs, sneezes, and direct contact, especially [id number]. A respiratory tract infection usually clears up in a few days, but some people may be sick for a week or two. INSTRUCTIONS: 1. Be careful not to blow your nose too hard because this may cause a nosebleed. 2. Use a cool-mist humidifier (vaporizer) to increase air moisture. This will make it easier for you to breathe. Do not use hot steam. 3. Rest as much as possible and get plenty of sleep. 4. Wash your hands often, especially after you blow your nose. Cover your mouth and nose with a tissue when you sneeze or cough. 5. Drink plenty of clear fluids (8 glasses a day) such as water, fruit juice, tea, clear soups, and carbonated beverages. CONTACT YOUR DOCTOR IF : 1. Your fever lasts more than 3 days. 2. You have a sore throat that gets worse or you see white or yellow spots in your throat. 3. Your cough gets worse or lasts more than 10 days. 4. You develop a rash anywhere on your skin. 5. You have an earache or a headache. 6. You have thick greenish or yellowish discharge from your nose. RETURN IMMEDIATELY IF: 1. You cough up thick yellow, green, weber, or bloody sputum. 2. You have difficulty breathing, pain in your chest, or your skin or nails look weber or blue. 3. You have shaking chills or a temperature over 102 F (39 C). documented in this encounter [facility] 07-23-2022 History of Presen t illness Narrative This note was created using TheraCoatriter. Subjective Lucas Woodson is a 27 year old female. 27 year old female with no PMH presents with illness. Acute onset yesterday +sore throat Denies accompanying eye or ear complaints. Of note, she states she became sick with cough 4 days ago +congestion +headache She is accompanied by her son who has tested positive for RSV and strep earlier in the week. 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 No parking enforcement officer was used. Sore Throat This is a new problem. The current episode started yesterday. The problem has been unchanged. Neither side of throat is experiencing more pain than the other. There has been no fever. The pain is at a severity of 5/10. The pain is moderate. Associated symptoms include congestion, coughing and headaches. Pertinent negatives include no abdominal pain, diarrhea, drooling, ear discharge, ear pain, hoarse voice, plugged ear sensation, neck pain, shortness of breath, stridor, swollen glands, trouble swallowing or vomiting. She has had exposure to strep. She has had no exposure to mono. She has tried NSAIDs for the symptoms. The treatment provided mild relief. PAST MEDICAL HISTORY Diagnosis Date Anemia During Chlamydia 2013 Depression Dysmenorrhea Dyspareunia Generalized anxiety disorder Other kyphoscoliosis and scoliosis Panic attacks PAST SURGICAL HISTORY Procedure Laterality Date PAST SURGICAL HISTORY OF pylionidal dimple closure -as baby SALPINGECTOMY Bilateral 02/10/2022 Dr. Teran TOOTH EXTRACTION 2015 wisdom teeth ALLERGIES Phenergan [Promethazine Hcl] and Zoloft [Sertraline Hcl] MEDICATIONS traZODone (DESYREL) 50 mg tablet Take 1 tablet by mouth daily at bedtime. fluticasone (FLONASE) 50 mcg/actuation nasal spray Use 2 Sprays in each nostril once daily. Rinse mouth after use. cetirizine (ZYRTEC) 10 mg tablet Take 1 tablet by mouth once daily. escitalopram oxalate (LEXAPRO) 10 mg tablet Take 1 tablet by mouth once daily. ondansetron (ZOFRAN) 4 mg tablet Take 1 tablet by mouth every 8 hours as needed for nausea/vomiting. (Patient not taking: Reported on 12/10/2021 ) SUMAtriptan (IMITREX) 25 mg tablet Take 1 tablet by mouth as needed for Migraine Headache (see administration instructions). at onset of headache. May repeat after 2 hours. (Patient not taking: Reported on 07/23/2022) FAMILY HISTORY Problem Relation Age of Onset Cancer Maternal Grandmother lung and non-hodgkins/Ovarian Asthma Mother Cervical Cancer Mother 40's other (Other, goiter) Mother had tyroidectomy Heart Attack Maternal Grandfather 48 Social History Tobacco Use Smoking status: Former Packs/day: 0.50 Years: 6.00 Pack years: 3.00 Types: Cigarettes Quit date: 07/02/2016 Years since quittin.0 Smokeless tobacco: Former Quit date: 06/15/2016 Tobacco comments: 1/2 ppd Vaping Use Vaping Use: Never used Substance Use Topics Alcohol use: No Drug use: Never Review of Systems Constitutional: Negative for chills and fever. HENT: Positive for congestion, postnasal drip, rhinorrhea and sore throat. Negative for drooling, ear discharge, ear pain, hoarse voice and trouble swallowing. Eyes: Negative for photophobia, pain, discharge, redness and itching. Respiratory: Positive for cough. Negative for apnea, chest tightness, shortness of breath and stridor. Cardiovascular: Negative for chest pain, palpitations and leg swelling. Gastrointestinal: Negative for abdominal pain, diarrhea, nausea and vomiting. Musculoskeletal: Negative for arthralgias, back pain and neck pain. Skin: Negative for color change, pallor, rash and wound. Neurological: Positive for headaches. Negative for dizziness and facial asymmetry. Hematological: Negative for adenopathy. Does not bruise/bleed easily. Psychiatric/Behavioral: Negative for agitation and behavioral problems. Objective BP 118/66 Pulse 82 Temp 37 C (98.6 F) Resp 18 Wt 58 kg (127 lb 12.8 oz) LMP 07/17/2022 (Exact Date) SpO2 98% BMI 21.27 kg/m Physical Exam Vitals and nursing note reviewed. Constitutional: General: She is not in acute distress. Appearance: Normal appearance. She is normal weight. She is not ill-appearing, toxic-appearing or diaphoretic. HENT: Head: Normocephalic and atraumatic. Right Ear: Ear canal and external ear normal. Left Ear: Ear canal and external ear normal. Nose: Nose normal. No congestion or rhinorrhea. Mouth/Throat: Mouth: Mucous membranes are moist. Pharynx: Posterior oropharyngeal erythema (marked posterior erythema. Uvula midline) present. No oropharyngeal exudate. Eyes: General: Right eye: No discharge. Left eye: No discharge. Extraocular Movements: Extraocular movements intact. Conjunctiva/sclera: Conjunctivae normal. Pupils: Pupils are equal, round, and reactive to light. Cardiovascular: Rate and Rhythm: Normal rate and regular rhythm. Pulses: Normal pulses. Heart sounds: Normal heart sounds. No murmur heard. No friction rub. Pulmonary: Effort: Pulmonary effort is normal. No respiratory distress. Breath sounds: Normal breath sounds. No stridor. No wheezing, rhonchi or rales. Chest: Chest wall: No tenderness. Abdominal: General: Abdomen is flat. There is no distension. Palpations: Abdomen is soft. There is no mass. Tenderness: There is no abdominal tenderness. There is no right CVA tenderness, left CVA tenderness, guarding or rebound. Hernia: No hernia is present. Musculoskeletal: General: No swelling, tenderness, deformity or signs of injury. Normal range of motion. Cervical back: Normal range of motion and neck supple. No rigidity. Right lower leg: No edema. Left lower leg: No edema. Lymphadenopathy: Cervical: No cervical adenopathy. Skin: General: Skin is warm and dry. Capillary Refill: Capillary refill takes less than 2 seconds. Coloration: Skin is not jaundiced or pale. Findings: No bruising, erythema, lesion or rash. Neurological: General: No focal deficit present. Mental Status: She is alert and oriented to person, place, and time. Cranial Nerves: No cranial nerve deficit. Sensory: No sensory deficit. Motor: No weakness. Coordination: Coordination normal. Gait: Gait normal. Psychiatric: Mood and Affect: Mood normal. Behavior: Behavior normal. Thought Content: Thought content normal. Judgment: Judgment normal. Assessment and Plan ASSESSMENT/PLAN: 1. Pharyngitis, unspecified etiology - ICD9: 462, ICD10: J02.9 (primary diagnosis) - suspect viral - Alere Strep Test NEGATIVE, no culture pending - Discussed supportive care treatment with fluids, rest and analgesia. - The patient may also use OTC cough and cold meds as needed, warm salt water gargles, throat lozenges and/or OTC throat spray as needed, and nasal saline gtts and suction prn. - Contagious dz precautions discussed- including considered contagious until on antibiotics for 24 hours - The patient should follow up in 3-5 days if symptoms persist or worsen - Call back if drooling, increased temperature, symptoms of dehydration and/or still sick in one week - STREP A MOLECULAR (POC) 2. URI, acute - ICD9: 465.9, ICD10: J06.9 - Discussed viral etiology and rationale for treatment. - Symptomatic treatment with prn analgesia - Supportive care with fluids and rest - Follow up in 3-5 days if symptoms persist or sooner if worsening of symptoms - Work note provided. Natalya Simpson APRN.CHERYL documented in this encounter [facility] 04-29-2022 Miscellaneous Notes Formattin g of this note is different from the original. Pharmacy requesting refills as follows: Last Office Visit 07/22/21. Last Refill 10/31/21. Requested Prescriptions Pending Prescriptions Disp Refills traZODone (DESYREL) 50 mg tablet 30 tablet 5 Sig: Take 1 tablet by mouth daily at bedtime. Please review and advise. Heavenly Santiago MA documented in this encounter [facility] 12-10-2021 History of Presen t illness Narrative Subjective HPI HPI Lucas Woodson is a 26 year old female who presents today for CC of right ear itching/pressure. She is also having mild clear runny nose. This started in past 24 hours. She denies any pain, no fever, no nasal congestion. She has not used any treatment or medications. She has a h/o seasonal allergies. BP 104/76 Pulse 90 Temp 36.4 C (97.5 F) Resp 19 Wt 58.3 kg (128 lb 9.6 oz) LMP 12/13/2018 (Exact Date) SpO2 99% BMI 21.40 kg/m Social History Tobacco Use Smoking status: Former Smoker Packs/day: 0.50 Years: 6.00 Pack years: 3.00 Types: Cigarettes Quit date: 07/02/2016 Years since quittin.4 Smokeless tobacco: Former User Quit date: 06/15/2016 Tobacco comment: 09/14 ppd Vaping Use Vaping Use: Never used Substance Use Topics Alcohol use: No Drug use: Never PAST MEDICAL HISTORY Diagnosis Date Anemia During Chlamydia 2012 Depression Dysmenorrhea Dyspareunia Generalized anxiety disorder Other kyphoscoliosis and scoliosis Panic attacks I have confirmed and edited as necessary, the [facility] Review of Systems Constitutional: Negative for chills and fever. HENT: Positive for ear pain (itching). Negative for congestion, sinus pain and sore throat. Respiratory: Negative for cough, sputum production, shortness of breath and wheezing. Cardiovascular: Negative for chest pain. Musculoskeletal: Negative for myalgias. Neurological: Negative for headaches. Objective Physical Exam Vitals and nursing note reviewed. HENT: Head: Normocephalic and atraumatic. Right Ear: Ear canal and external ear normal. A middle ear effusion (clear) is present. Tympanic membrane is bulging. Left Ear: Ear canal and external ear normal. A middle ear effusion (clear) is present. Tympanic membrane is bulging. Nose: Rhinorrhea (clear) present. No mucosal edema or congestion. Mouth/Throat: Pharynx: Uvula midline. No oropharyngeal exudate, posterior oropharyngeal erythema or uvula swelling. Cardiovascular: Rate and Rhythm: Normal rate and regular rhythm. Heart sounds: Normal heart sounds. Pulmonary: Effort: Pulmonary effort is normal. Breath sounds: Normal breath sounds. Lymphadenopathy: Head: Right side of head: No submental, submandibular or tonsillar adenopathy. Left side of head: No submental, submandibular or tonsillar adenopathy. Cervical: No cervical adenopathy. Skin: General: Skin is warm and dry. Neurological: Mental Status: She is alert and oriented to person, place, and time. Psychiatric: Mood and Affect: Affect normal. ASSESSMENT/PLAN: 1. Fluid collection of middle ear - ICD9: 381.4, ICD10: H65.90 Zyrtec 10 mg By mouth daily at bedtime Flonase 2 sprays in each nostril once a day Use each for 30 days or during allergy season If becomes painful, need to have recheck. Diagnosis and treatment plan were discussed and questions were answered to the patient's satisfaction. Pt acknowledged understanding of concepts and follow up plan. Specific signs and symptoms that would indicate the need for higher level of care were discussed in detail warranting prompt ER evaluation. Idalia Ochoa APRN.CHERYL documented in this encounter [facility] 12-10-2021 Instructions Idalia Ochoa APRN.CNP - 12/10/2021 2:45 PM EDT Zyrtec 10 mg By mouth daily at bedtime Flonase 2 sprays in each nostril once a day Use each for 30 days or during allergy season If becomes painful, need to have recheck. GO TO THE ER IF: 1. You have a severe headache or pain around the ear. 2. You notice swelling around the ear. 3. You have a seizure (convulsion), twitching of the facial muscles, or passes out. 4. You are dizzy, have a stiff neck, or cannot walk or talk normally. documented in this encounter [facility] documented as of this encounter (statuses as of 12/10/2021) [facility]03-31-2017 History of Past illness Narrative* Problem Noted Date Resolved Date Antepartum anemia complicating in thir d trimester 12/11/2016 03/25/2017 Encounter for supervision of normal in third trimester 10/12/2016 03/25/2017 Overview: Boy on us- [place] Pelvic pain in 07/16/2016 017 Overview: 07/16/2016Pt was seen at [facility] 06/29/2016 for pelvic cramping. She denies any pain since then. Denies any bleeding this . TKRN Quit smoking 07/16/2016 03/25/2017 Overview: 07/16/2016Pt recently quit smoking 07/02/2016. Discussed risks of smoking during and advised pt to continue not smoking.TKRN History of depression 07/16/2016 03/25/2017 Overview: 07/16/2016Pt has a history of depression and anxiety diagnosed at age 15. She has been off medication since age 16 .She had one psychiatric hospitalization at age 15. Discussed increased risks of depression during and and importance of reporting the development or worsening of symptoms should they occur.Pt states she had suicidal thoughts at age 15. She denies any suicidal thoughts since then.She denies any depression. TKRN Nausea and vomiting in 07/16/2016 03/25/2017 Overview: 07/16/2016 Patient is complaining of nausea and vomiting in . Advised patient to call/come in if she is unable to keep any food or fluids down in a 24-hour period.Dietary considerations discussed. Phenergan ordered by Suleman Boo. Discussed Vitamin B6. TKRN Anxiety and depression 12/18/2014 7 Overview: She had depression when she was 14, had to stay a week in [place] she was in house for a week. For therapy She now has anxiety . She was on prozac in the past , gave her suicidal thoughts and She acted on it. zoloft was started by me but she had severe palpitations and it did not help her too much but she did have an out of body experience. Last Assessment & Plan: She had depression when she was 14, had to stay a week in [place] she was in house for a week. For therapy She now has anxiety . She was on prozac in the past , gave her suicidal thoughts and She acted on it. zoloft was started by me but she had severe palpitations and it did not help her too much but she did have an out of body experience. She went to er with the out of body experience and was put on ativan prn ,which she says does not work for her at all. Buspirone was not tried in the past,. She is willing to try that. documented as of this encounter (statuses as of 04/29/2022) [facility] [place]03-[facility]-2017 History of Past illness Narrative* Problem Noted Date Resolved Date Antepartum anemia complicating in thir d trimester 12/11/2016 03/25/2017 Encounter for supervision of normal in third trimester 10/12/2016 03/25/2017 Overview: Boy on us- [place] Pelvic pain in 07/16/2016 017 Overview: 07/16/2016Pt was seen at [facility] 06/29/2016 for pelvic cramping. She denies any pain since then. Denies any bleeding this . TKRN Quit smoking 07/16/2016 03/25/2017 Overview: 07/16/2016Pt recently quit smoking 07/02/2016. Discussed risks of smoking during and advised pt to continue not smoking.TKRN History of depression 07/16/2016 03/25/2017 Overview: 07/16/2016Pt has a history of depression and anxiety diagnosed at age 15. She has been off medication since age 16 .She had one psychiatric hospitalization at age 15. Discussed increased risks of depression during and and importance of reporting the development or worsening of symptoms should they occur.Pt states she had suicidal thoughts at age 15. She denies any suicidal thoughts since then.She denies any depression. TKRN Nausea and vomiting in 07/16/2016 03/25/2017 Overview: 07/16/2016 Patient is complaining of nausea and vomiting in . Advised patient to call/come in if she is unable to keep any food or fluids down in a 24-hour period.Dietary considerations discussed. Phenergan ordered by Suleman Boo. Discussed Vitamin B6. TKRN Anxiety and depression 12/18/2014 7 Overview: She had depression when she was 14, had to stay a week in [place] she was in house for a week. For therapy She now has anxiety . She was on prozac in the past , gave her suicidal thoughts and She acted on it. zoloft was started by me but she had severe palpitations and it did not help her too much but she did have an out of body experience. Last Assessment & Plan: She had depression when she was 14, had to stay a [place] in [place] she was in house for a week. For therapy She now has anxiety . She was on prozac in the past , gave her suicidal thoughts and She acted on it. zoloft was started by me but she had severe palpitations and it did not help her too much but she did have an out of body experience. She went to er with the out of body experience and was put on ativan prn ,which she says does not work for her at all. Buspirone was not tried in the past,. She is willing to try that. documented as of this encounter (statuses as of 07/23/2022) [facility]2017 History of Past illness Narrative* Problem Noted Date Resolved Date Antepartum anemia complicating in thir d trimester 12/11/2016 03/25/2017 Encounter for supervision of normal in third trimester 10/12/2016 03/25/2017 Overview: Boy on us- [place] Pelvic pain in 07/16/2016 017 Overview: 07/16/2016Pt was seen at [facility] 06/29/2016 for pelvic cramping. She denies any pain since then. Denies any bleeding this . TKRN Quit smoking 07/16/2016 03/25/2017 Overview: 07/16/2016Pt recently quit smoking 07/02/2016. Discussed risks of smoking during and advised pt to continue not smoking.TKRN History of depression 07/16/2016 03/25/2017 Overview: 07/16/2016Pt has a history of depression and anxiety diagnosed at age 15. She has been off medication since age 16 .She had one psychiatric hospitalization at age 15. Discussed increased risks of depression during and and importance of reporting the development or worsening of symptoms should they occur.Pt states she had suicidal thoughts at age 15. She denies any suicidal thoughts since then.She denies any depression. TKRN Nausea and vomiting in 07/16/2016 03/25/2017 Overview: 07/16/2016 Patient is complaining of nausea and vomiting in . Advised patient to call/come in if she is unable to keep any food or fluids down in a 24-hour period.Dietary considerations discussed. Phenergan ordered by Suleman Boo. Discussed Vitamin B6. TKRN Anxiety and depression 12/18/2014 7 Overview: She had depression when she was 14, had to stay a [place] in [place] she was in house for a week. For therapy She now has anxiety . She was on prozac in the past , gave her suicidal thoughts and She acted on it. zoloft was started by me but she had severe palpitations and it did not help her too much but she did have an out of body experience. Last Assessment & Plan: She had depression when she was 14, had to stay a [place] in [place] she was in house for a week. For therapy She now has anxiety . She was on prozac in the past , gave her suicidal thoughts and She acted on it. zoloft was started by me but she had severe palpitations and it did not help her too much but she did have an out of body experience. She went to er with the out of body experience and was put on ativan prn ,which she says does not work for her at all. Buspirone was not tried in the past,. She is willing to try that. documented as of this encounter (statuses as of 08/11/2022) [facility]2017 History of Past illness Narrative* Problem Noted Date Resolved Date Antepartum anemia complicating in thir d trimester 12/11/2016 03/25/2017 Encounter for supervision of normal in third trimester 10/12/2016 03/25/2017 Overview: Boy on us- [place] Pelvic pain in 07/16/2016 017 Overview: 07/16/2016Pt was seen at [facility] 06/29/2016 for pelvic cramping. She denies any pain since then. Denies any bleeding this . TKRN Quit smoking 07/16/2016 03/25/2017 Overview: 07/16/2016Pt recently quit smoking 07/02/2016. Discussed risks of smoking during and advised pt to continue not smoking.TKRN History of depression 07/16/2016 03/25/2017 Overview: 07/16/2016Pt has a history of depression and anxiety diagnosed at age 15. She has been off medication since age 16 .She had one psychiatric hospitalization at age 15. Discussed increased risks of depression during and and importance of reporting the development or worsening of symptoms should they occur.Pt states she had suicidal thoughts at age 15. She denies any suicidal thoughts since then.She denies any depression. TKRN Nausea and vomiting in 07/16/2016 03/25/2017 Overview: 07/16/2016 Patient is complaining of nausea and vomiting in . Advised patient to call/come in if she is unable to keep any food or fluids down in a 24-hour period.Dietary considerations discussed. Phenergan ordered by Suleman Boo. Discussed Vitamin B6. TKRN Anxiety and depression 12/18/2014 7 Overview: She had depression when she was 14, had to stay a [place] in [place] she was in house for a week. For therapy She now has anxiety . She was on prozac in the past , gave her suicidal thoughts and She acted on it. zoloft was started by me but she had severe palpitations and it did not help her too much but she did have an out of body experience. Last Assessment & Plan: She had depression when she was 14, had to stay a [place] she was in house for a week. For therapy She now has anxiety . She was on prozac in the past , gave her suicidal thoughts and She acted on it. zoloft was started by me but she had severe palpitations and it did not help her too much but she did have an out of body experience. She went to er with the out of body experience and was put on ativan prn ,which she says does not work for her at all. Buspirone was not tried in the past,. She is willing to try that. documented as of this encounter (statuses as of 08/22/2022) [facility]2017 History of Past illness Narrative* Problem Noted Date Resolved Date Antepartum anemia complicating in thir d trimester 12/11/2016 03/25/2017 Encounter for supervision of normal in third trimester 10/12/2016 03/25/2017 Overview: Boy on us- [place] Pelvic pain in 07/16/2016 017 Overview: 07/16/2016Pt was seen at [facility] 06/29/2016 for pelvic cramping. She denies any pain since then. Denies any bleeding this . TKRN Quit smoking 07/16/2016 03/25/2017 Overview: 07/16/2016Pt recently quit smoking 07/02/2016. Discussed risks of smoking during and advised pt to continue not smoking.TKRN History of depression 07/16/2016 03/25/2017 Overview: 07/16/2016Pt has a history of depression and anxiety diagnosed at age 15. She has been off medication since age 16 .She had one psychiatric hospitalization at age 15. Discussed increased risks of depression during and and importance of reporting the development or worsening of symptoms should they occur.Pt states she had suicidal thoughts at age 15. She denies any suicidal thoughts since then.She denies any depression. TKRN Nausea and vomiting in 07/16/2016 03/25/2017 Overview: 07/16/2016 Patient is complaining of nausea and vomiting in . Advised patient to call/come in if she is unable to keep any food or fluids down in a 24-hour period.Dietary considerations discussed. Phenergan ordered by Suleman Boo. Discussed Vitamin B6. TKRN Anxiety and depression 12/18/2014 7 Overview: She had depression when she was 14, had to stay a [place] she was in house for a week. For therapy She now has anxiety . She was on prozac in the past , gave her suicidal thoughts and She acted on it. zoloft was started by me but she had severe palpitations and it did not help her too much but she did have an out of body experience. Last Assessment & Plan: She had depression when she was 14, had to stay [place] she was in house for a week. For therapy She now has anxiety . She was on prozac in the past , gave her suicidal thoughts and She acted on it. zoloft was started by me but she had severe palpitations and it did not help her too much but she did have an out of body experience. She went to er with the out of body experience and was put on ativan prn ,which she says does not work for her at all. Buspirone was not tried in the past,. She is willing to try that. documented as of this encounter (statuses as of 09/18/2022) [facility] History of Past illness Narrative* Problem Noted Date Resolved Date Antepartum anemia complicating in thir d trimester 12/11/2016 03/25/2017 Encounter for supervision of normal in third trimester 10/12/2016 03/25/2017 Overview: Boy on us- [place] Pelvic pain in 07/16/2016 017 Overview: 07/16/2016Pt was seen at [facility] 06/29/2016 for pelvic cramping. She denies any pain since then. Denies any bleeding this . TKRN Quit smoking 07/16/2016 03/25/2017 Overview: 07/16/2016Pt recently quit smoking 07/02/2016. Discussed risks of smoking during and advised pt to continue not smoking.TKRN History of depression 07/16/2016 03/25/2017 Overview: 07/16/2016Pt has a history of depression and anxiety diagnosed at age 15. She has been off medication since age 16 .She had one psychiatric hospitalization at age 15. Discussed increased risks of depression during and and importance of reporting the development or worsening of symptoms should they occur.Pt states she had suicidal thoughts at age 15. She denies any suicidal thoughts since then.She denies any depression. TKRN Nausea and vomiting in 07/16/2016 03/25/2017 Overview: 07/16/2016 Patient is complaining of nausea and vomiting in . Advised patient to call/come in if she is unable to keep any food or fluids down in a 24-hour period.Dietary considerations discussed. Phenergan ordered by Suelman Boo. Discussed Vitamin B6. TKRN Anxiety and depression 12/18/2014 7 Overview: She had depression when she was 14, had to stay a week in [place] she was in house for a week. For therapy She now has anxiety . She was on prozac in the past , gave her suicidal thoughts and She acted on it. zoloft was started by me but she had severe palpitations and it did not help her too much but she did have an out of body experience. Last Assessment & Plan: She had depression when she was 14, had to stay a [place] in [place] she was in house for a week. For therapy She now has anxiety . She was on prozac in the past , gave her suicidal thoughts and She acted on it. zoloft was started by me but she had severe palpitations and it did not help her too much but she did have an out of body experience. She went to er with the out of body experience and was put on ativan prn ,which she says does not work for her at all. Buspirone was not tried in the past,. She is willing to try that. documented as of this encounter (statuses as of 10/28/2022) [facility] [place]03-31-2017 History of Past illness Narrative* Problem Noted Date Resolved Date Antepartum anemia complicating in thir d trimester 12/11/2016 03/25/2017 Encounter for supervision of normal in third trimester 10/12/2016 03/25/2017 Overview: Boy on us- [place] Pelvic pain in 07/16/2016 017 Overview: 07/16/2016Pt was seen at [facility] 06/29/2016 for pelvic cramping. She denies any pain since then. Denies any bleeding this . TKRN Quit smoking 07/16/2016 03/25/2017 Overview: 07/16/2016Pt recently quit smoking 07/02/2016. Discussed risks of smoking during and advised pt to continue not smoking.TKRN History of depression 07/16/2016 03/25/2017 Overview: 07/16/2016Pt has a history of depression and anxiety diagnosed at age 15. She has been off medication since age 16 .She had one psychiatric hospitalization at age 15. Discussed increased risks of depression during and and importance of reporting the development or worsening of symptoms should they occur.Pt states she had suicidal thoughts at age 15. She denies any suicidal thoughts since then.She denies any depression. TKRN Nausea and vomiting in 07/16/2016 03/25/2017 Overview: 07/16/2016 Patient is complaining of nausea and vomiting in . Advised patient to call/come in if she is unable to keep any food or fluids down in a 24-hour period.Dietary considerations discussed. Phenergan ordered by Suleman Boo. Discussed Vitamin B6. TKRN Anxiety and depression 12/18/2014 7 Overview: She had depression when she was 14, had to stay a [place] in [place] she was in house for a week. For therapy She now has anxiety . She was on prozac in the past , gave her suicidal thoughts and She acted on it. zoloft was started by me but she had severe palpitations and it did not help her too much but she did have an out of body experience. Last Assessment & Plan: She had depression when she was 14, had to stay a [place] in [place] she was in house for a week. For therapy She now has anxiety . She was on prozac in the past , gave her suicidal thoughts and She acted on it. zoloft was started by me but she had severe palpitations and it did not help her too much but she did have an out of body experience. She went to er with the out of body experience and was put on ativan prn ,which she says does not work for her at all. Buspirone was not tried in the past,. She is willing to try that. documented as of this encounter (statuses as of 10/29/2022) [facility] [place]03-[facility]-2017 History of Past illness Narrative* Problem Noted Date Resolved Date Antepartum anemia complicating in thir d trimester 12/11/2016 03/25/2017 Encounter for supervision of normal in third trimester 10/12/2016 03/25/2017 Overview: Boy on us- [place] Pelvic pain in 07/16/2016 017 Overview: 07/16/2016Pt was seen at [facility] 06/29/2016 for pelvic cramping. She denies any pain since then. Denies any bleeding this . TKRN Quit smoking 07/16/2016 03/25/2017 Overview: 07/16/2016Pt recently quit smoking 07/02/2016. Discussed risks of smoking during and advised pt to continue not smoking.TKRN History of depression 07/16/2016 03/25/2017 Overview: 07/16/2016Pt has a history of depression and anxiety diagnosed at age 15. She has been off medication since age 16 .She had one psychiatric hospitalization at age 15. Discussed increased risks of depression during and and importance of reporting the development or worsening of symptoms should they occur.Pt states she had suicidal thoughts at age 15. She denies any suicidal thoughts since then.She denies any depression. TKRN Nausea and vomiting in 07/16/2016 03/25/2017 Overview: 07/16/2016 Patient is complaining of nausea and vomiting in . Advised patient to call/come in if she is unable to keep any food or fluids down in a 24-hour period.Dietary considerations discussed. Phenergan ordered by Suleman Boo. Discussed Vitamin B6. TKRN Anxiety and depression 12/18/2014 7 Overview: She had depression when she was 14, had to stay a [place] in [place] was in house for a week. For therapy She now has anxiety . She was on prozac in the past , gave her suicidal thoughts and She acted on it. zoloft was started by me but she had severe palpitations and it did not help her too much but she did have an out of body experience. Last Assessment & Plan: She had depression when she was 14, had to stay a week in [place] she was in house for a week. For therapy She now has anxiety . She was on prozac in the past , gave her suicidal thoughts and She acted on it. zoloft was started by me but she had severe palpitations and it did not help her too much but she did have an out of body experience. She went to er with the out of body experience and was put on ativan prn ,which she says does not work for her at all. Buspirone was not tried in the past,. She is willing to try that. documented as of this encounter (statuses as of 12/14/2022) [facility] [place]03-[facility]-2017 History of Past illness Narrative* Problem Noted Date Resolved Date Antepartum anemia complicating in thir d trimester 12/11/2016 03/25/2017 Encounter for supervision of normal in third trimester 10/12/2016 03/25/2017 Overview: Boy on us- [place] Pelvic pain in 07/16/2016 017 Overview: 07/16/2016Pt was seen at [facility] 06/29/2016 for pelvic cramping. She denies any pain since then. Denies any bleeding this . TKRN Quit smoking 07/16/2016 03/25/2017 Overview: 07/16/2016Pt recently quit smoking 07/02/2016. Discussed risks of smoking during and advised pt to continue not smoking.TKRN History of depression 07/16/2016 03/25/2017 Overview: 07/16/2016Pt has a history of depression and anxiety diagnosed at age 15. She has been off medication since age 16 .She had one psychiatric hospitalization at age 15. Discussed increased risks of depression during and and importance of reporting the development or worsening of symptoms should they occur.Pt states she had suicidal thoughts at age 15. She denies any suicidal thoughts since then.She denies any depression. TKRN Nausea and vomiting in 07/16/2016 03/25/2017 Overview: 07/16/2016 Patient is complaining of nausea and vomiting in . Advised patient to call/come in if she is unable to keep any food or fluids down in a 24-hour period.Dietary considerations discussed. Phenergan ordered by Suleman Boo. Discussed Vitamin B6. TKRN Anxiety and depression 12/18/2014 7 Overview: She had depression when she was 14, had to stay a [place] in [place] she was in house for a week. For therapy She now has anxiety . She was on prozac in the past , gave her suicidal thoughts and She acted on it. zoloft was started by me but she had severe palpitations and it did not help her too much but she did have an out of body experience. Last Assessment & Plan: She had depression when she was 14, had to stay a [place] in [place] she was in house for a week. For therapy She now has anxiety . She was on prozac in the past , gave her suicidal thoughts and She acted on it. zoloft was started by me but she had severe palpitations and it did not help her too much but she did have an out of body experience. She went to er with the out of body experience and was put on ativan prn ,which she says does not work for her at all. Buspirone was not tried in the past,. She is willing to try that. documented as of this encounter (statuses as of 12/21/2022) [facility] [place]-2017 History of Past illness Narrative* Problem Noted Date Diagnosed Date Resolved Date Antepartum anemia complicati ng in third trimester 12/11/2016 03/25/2017 Encounter for supervision of normal in third trimester 10/12/2016 03/25/2017 Overview: Boy on us- [place] Pelvic pain in 07/16/2016 Overview: 07/16/2016Pt was seen at [facility] 06/29/2016 for pelvic cramping. She denies any pain since then. Denies any bleeding this . TKRN Quit smoking 07/16/2016 03/25/2017 Overview: 07/16/2016Pt recently quit smoking 07/02/2016. Discussed risks of smoking during and advised pt to continue not smoking.TKRN History of depression 07/16/20162016 Overview: 07/16/2016Pt has a history of depression and anxiety diagnosed at age 15. She has been off medication since age 16 .She had one psychiatric hospitalization at age 15. Discussed increased risks of depression during and and importance of reporting the development or worsening of symptoms should they occur.Pt states she had suicidal thoughts at age 15. She denies any suicidal thoughts since then.She denies any depression. TKRN Nausea and vomiting in 07/16/2016 03/25/2017 Overview: 07/16/2016 Patient is complaining of nausea and vomiting in . Advised patient to call/come in if she is unable to keep any food or fluids down in a 24-hour period.Dietary considerations discussed. Phenergan ordered by Suleman Boo. Discussed Vitamin B6. TKRN Anxiety and depression 12/18/201403/25 Overview: She had depression when she was 14, had to stay a [place] she was in house for a week. For therapy She now has anxiety . She was on prozac in the past , gave her suicidal thoughts and She acted on it. zoloft was started by me but she had severe palpitations and it did not help her too much but she did have an out of body experience. Last Assessment & Plan: She had depression when she was 14, had to stay a [place] she was in house for a week. For therapy She now has anxiety . She was on prozac in the past , gave her suicidal thoughts and She acted on it. zoloft was started by me but she had severe palpitations and it did not help her too much but she did have an out of body experience. She went to er with the out of body experience and was put on ativan prn ,which she says does not work for her at all. Buspirone was not tried in the past,. She is willing to try that. documented as of this encounter (statuses as of 08/25/2023) [facility] Fluid collection of middle ear- [facility] Diagnosis Pharyngitis, unspecified etiology- Primary URI, acute Acute upper respiratory infections of unspecified site [facility] Diagnosis Acute non-recurrent pansinusitis- Primary [facility] Diagnosis Vaginal discharge- Primary Leukorrhea, not specified as infective documented [facility] Diagnosis ROSANA (generalized anxiety disorder)- Primary Generalized anxiety disorder Insomnia, unspecified type Migraine, unspecified, without mention of intractable migraine without mention of status migrainosus [facility] Diagnosis ROSANA (generalized anxiety disorder)- Primary Generalized anxiety disorder Mild episode of recurrent major depressive disorder (HCC) Chronic dermatitis of hands Contact dermatitis and other eczema, due to unspecified cause Thyroid disorder screening Screening for thyroid disorder Screening for lipid disorders documented in this encounter [facility] Summary Purpose Family History No Family History Records FoundNo Family History Records Found Advance Directives No Advanced Directives Records FoundNo Advanced Directives Records Found Additional Source Comments Source Comments (unrecognize d section and content) In the event this informatio n is protected by the Federal Confidentiality of Alcohol and Drug Abuse Patient Records regulations: The Federal rules restrict any use of the information to criminally investigate or prosecute any alcohol or drug abuse patient.[facility] the event this information is protected by the Federal Confidentiality of Alcohol and Drug Abuse Patient Records regulations: The Federal rules restrict any use of the information to criminally investigate or prosecute any alcohol or drug abuse patient.[facility] the event this information is protected by the Federal Confidentiality of Alcohol and Drug Abuse Patient Records regulations: The Federal rules restrict any use of the information to criminally investigate or prosecute any alcohol or drug abuse patient.[facility] the event this information is protected by the Federal Confidentiality of Alcohol and Drug Abuse Patient Records regulations: The Federal rules restrict any use of the information to criminally investigate or prosecute any alcohol or drug abuse patient.[facility] the event this information is protected by the Federal Confidentiality of Alcohol and Drug Abuse Patient Records regulations: The Federal rules restrict any use of the information to criminally investigate or prosecute any alcohol or drug abuse patient.[facility] the event this information is protected by the Federal Confidentiality of Alcohol and Drug Abuse Patient Records regulations: The Federal rules restrict any use of the information to criminally investigate or prosecute any alcohol or drug abuse patient.[facility] the event this information is protected by the Federal Confidentiality of Alcohol and Drug Abuse Patient Records regulations: The Federal rules restrict any use of the information to criminally investigate or prosecute any alcohol or drug abuse patient.[facility] the event this information is protected by the Federal Confidentiality of Alcohol and Drug Abuse Patient Records regulations: The Federal rules restrict any use of the information to criminally investigate or prosecute any alcohol or drug abuse patient.[facility] the event this information is protected by the Federal Confidentiality of Alcohol and Drug Abuse Patient Records regulations: The Federal rules restrict any use of the information to criminally investigate or prosecute any alcohol or drug abuse patient.[facility] [place] the event this information is protected by the Federal Confidentiality of Alcohol and Drug Abuse Patient Records regulations: The Federal rules restrict any use of the information to criminally investigate or prosecute any alcohol or drug abuse patient.[facility] the event this information is protected by the Federal Confidentiality of Alcohol and Drug Abuse Patient Records regulations: The Federal rules restrict any use of the information to criminally investigate or prosecute any alcohol or drug abuse patient.[facility] Reason for Visit (unrecogniz ed section and content) Reason Onset Date Comments Refill Request 04/26/2022 Reason Comments Throat Culture Pt reported +Strep e xposure, Mendoza cough, nasal congestion x 1 days. Reason Comments Pain, Sinus sinus pressure, coug h, drainage x 1 week Reason Comments Vaginal Discharge itching, was on anti biotic x 3 days Reason Onset Date Comments Refill Request 10/25/2022 Reason Comments Sleep Problem Reason Comments Anxiety Stopped lexapro Skin Check Dry hands Reason Comments Refill Request Care Teams (unrecognized sec tion and content) Computer Hardware Developer Relationship Specialty Start Date End Date Lucas Green, OPTICAL MECHANIC APPRENTICE.BUSINESS SUPPORT [address] [facility] [place] [address] PCP - General Family Practice 09/27/19 Computer Hardware Developer Relationship Specialty Start Date End Date Lucas Green, OPTICAL MECHANIC APPRENTICE.BUSINESS SUPPORT [address] [facility] [place] [address] PCP - General Family Medicine 09/27/19 Computer Hardware Developer Relationship Specialty Start Date End Date Lucas Green, OPTICAL MECHANIC APPRENTICE.BUSINESS SUPPORT [address] [facility] [place] [address] PCP - General Family Medicine 09/27/19 Computer Hardware Developer Relationship Specialty Start Date End Date Lucas Green OPTICAL MECHANIC APPRENTICE.BUSINESS SUPPORT [address] [facility] [place] [address] PCP - General Family Medicine 09/27/19 Computer Hardware Developer Relationship Specialty Start Date End Date Lucas Green, OPTICAL MECHANIC APPRENTICE.BUSINESS SUPPORT [address] [facility] [place] [address] PCP - General Family Medicine 09/27/19 Computer Hardware Developer Relationship Specialty Start Date End Date Lucas Green, OPTICAL MECHANIC APPRENTICE.BUSINESS SUPPORT [address] [facility] [place] [address] PCP - General Family Medicine 09/27/19 Computer Hardware Developer Relationship Specialty Start Date End Date Lucas Green, OPTICAL MECHANIC APPRENTICE.BUSINESS SUPPORT [address] [place] [address] PCP - General Family Medicine 09/27/19 Computer Hardware Developer Relationship Specialty Start Date End Date Lucas Green APRN.BUSINESS SUPPORT [address] [place] [address] PCP - General Family Medicine 09/27/19 INFORMATION SOURCE (unrecogn ized section and content) DATE CREATED AUTHOR AUTHOR'S ORGANIZ ATION 12/27/2022 [facility] FOR RECORDS PERTAINING TO PATIENTS WHO ARE OR HAVE BEEN ENROLLED IN A CHEMICAL DEPENDENCY/SUBSTANCEABUSE PROGRAM, SOME INFORMATION MAY BE OMITTED. This clinical summary was aggregated from multiple sources. Caution should be exercised in using it in the provision of clinical care. This summary normalizes information from multiple sources, and as a consequence, information in this document may materially change the coding, format and clinical context of patient data. In addition, data may be omitted in some cases. CLINICAL DECISIONS SHOULD BE BASED ON THE PRIMARY CLINICAL RECORDS. [employer] [facility]. provides no warranty or guarantee of the accuracy or completeness of information in this document.
[2023-10-15 06:10] LABS: Chlamydia By Nucleic Acid AMP Negative (Negative); Gonococcus By Nucleic Acid AMP Negative (Negative)
== END | disposition home or self-care (01) ==
LOC: LABSPEC 13:22
PROVIDERS: PCP Nurse Practitioner Family; Referring Provider Nurse Practitioner Women's Health; Visit Provider Nurse Practitioner Women's Health
DX: Z11.3 Encounter for screening for infections with a predominantly sexual mode of transmission (principal)
CPT/HCPCS: 87491; 87591

== ENCOUNTER → 2023-10-22 | Outpatient (CLI) | payer BC, SELFPAY ==
--- NOTE | 2023-10-22 08:29 | US_ITS ---
STUDY: ULTRASOUND OF THE FEMALE PELVIS - REASON FOR EXAM: Female, 28 years old. Cramping, bleeding -- AUB, MENORRHAGIA -- HX OF TUBAL LIGATION LMP: Unknown. TECHNIQUE: Transabdominal and Transvaginal TECHNICAL QUALITY: Adequate. COMPARISON: None. FINDINGS: The uterus is anteverted and is in a midline position. The uterus measures 8.8 x 5.9 x 4.6 cm. Normal uterine cervix. The endometrium measures 10 mm in thickness, and is hyperechoic. There is no demonstrated endometrial mass. There is no demonstrated myometrial mass. I.U.D. - The patient does not have an I.U.D. The right ovary is visualized. The right ovary measures 3.6 x 2.9 x 2.4 cm. There is no right ovarian cyst or ovarian mass. There is no visualized right adnexal mass or complex lesion. There is normal arterial and normal venous vascularity. The left ovary is visualized. The left ovary measures 4.2 x 3.5 x 2.5 cm. There is no left ovarian cyst or ovarian mass. There is no visualized left adnexal mass or complex lesion. There is normal arterial and normal venous vascularity. There is mild fluid in the cul-de-sac. The pre void volume of the bladder was 389 ml. US/Pelvic (Non ) IMPRESSION: Normal female pelvis. Electronically Signed: Sumeet Austin MD at 12:17 EST ,
--- OUTSIDE RECORDS SUMMARY | 2023-10-22 08:49 | XMS RPT_ITS | CCD ---
Author Name Unknown Address [address] [place] [address] Organization [facility] Care Team Providers Care Rock Duster Name Role Phone Trisamuel FRAMING SPECIALIST.Lucas LUNA Primary Care Provider LUCAS GREEN Referring Unavailable LUCAS GREEN Primary Care Unavailable LUCAS GREEN Primary Care Unavailable TRILUCAS GREER C Primary Care Unavailable TRILUCAS GREER Primary Care Unavailable Trill FRAMING SPECIALIST.Lucas LUNA Primary Care Provider LUCAS GREEN Attending Unavailable LUCAS GREEN Primary Care Unavailable LUCAS GREEN C Attending Unavailable TRILL, LUCAS C Primary Care Unavailable TRISAMUEL, LUCAS C Primary Care Unavailable NORMA LUCAS C Attending Unavailable Allergies Allergy Classification Reported Allergen(s) Allergy Type Date of Onset Reaction(s) Facility (13 sources) Promethazine; Translations: [PROMETHAZINE HCL] Drug Allergy 07-28-2016 Other: See Comments [facility] Work Phone: (13 sources) Sertraline; Translations: [SERTRALINE HCL] Drug Allergy 03-04-2015 Intolerance [facility] Work Phone: Medications Current Medications Medication Drug [...] Active Problems Problem Classification Problem Date Documented Da te Episodic/Chronic Anal and rectal conditions (1 source) Other specified diseases of anus and rectum; Translations: [Rectal pain] Onset: 4 Episodic Anxiety disorders (15 sources) Generalized anxiety disorder; Translations: [Generalized anxiety disorder] Onset: 0 09-27-2019 Chronic Gastrointestinal hemorrhage (1 source) Hemorrhage of anus and rectum; Translations: [Rectal bleeding] Onset: 4 Episodic Headache; including migraine (12 sources) Migraine; Translations: [Migraine, unspecified, not intractable, without status migrainosus] Onset: 1 03-26-2021 Chronic Miscellaneous mental health disorders (1 source) Psychophysiologic insomnia; Translations: [Chronic insomnia] Onset: 4 Chronic Mood disorders (3 sources) Recurrent major depressive episodes, mild ; Translations: [Major depressive disorder, recurrent, mild] Onset: 3 Chronic Other female genital disorders (1 source) Vaginal discharge; Translations: [Other specified noninflammatory disorders of vagina] Episodic Other nervous system disorders (1 source) Attention and concentration deficit; Translations: [Inattention] Onset: 4 Chronic Other upper respiratory infections (3 sources) Pharyngitis; Translations: [Acute pharyngitis, unspecified] Episodic Otitis media and related conditions (1 source) Finding of fluid behind tympanic membrane; Translations: [Unspecified nonsuppurative otitis media, unspecified ear] Episodic Residual codes; unclassified (1 source) Other amnesia; Translations: [Memory loss] Onset: 4 Episodic Unclassified (1 source) Sleep Problem Onset: 3 Past or Other Problems Problem Classification Problem Date Documented Da te Episodic/Chronic Allergic reactions (2 sources) Chronic hand eczema; Translations: [Dermatitis, unspecified] Onset: 12-11-2022 Episodic Contraceptive and procreative management (7 sources) Patient encounter status; Translations: [Encounter for sterilization] Onset: 10-28-2022 10-28-2022 Episodic Other injuries and conditions due to external causes (11 sources) H/O: head injury; Translations: [Personal history of other (healed) physical injury and trauma] Onset: 10-31-2019 10-31-2019 Episodic Other screening for suspected conditions (not mental disorders or infectious disease) (4 sources) Encounter for screening for lipoid disorders; Translations: [Encounter for screening for other suspected endocrine disorder] Onset: 12-11-2022 Episodic Residual codes; unclassified (12 sources) Insomnia; [...] Date Time Vital Sign Value Performing Clinician Faci lity 12-11-2022 09:58-0400 Body height 161.3 cm Lucas Green APRN.CNP Work Phone: [facility] 12-11-2022 09:58-0400 Body temperature 98.6 [degF] Lucas Green APRN.CNP Work Phone: [facility] 12-11-2022 09:58-0400 Body weight 56.7 kg Lucas Green APRN.CNP Work Phone: [facility] 12-11-2022 09:58-0400 Diastolic blood pressure 70 mm[Hg] Lucas Green APRN.CNP Work Phone: [facility] 12-11-2022 09:58-0400 Heart rate 72 /min Lucas Green APRN.CNP Work Phone: [facility] 12-11-2022 09:58-0400 SaO2% (BldA) [Mass fraction] 98 % Lucas Green FRAMING SPECIALIST.TIER TRUCK DRIVER Work Phone: [facility] 12-11-2022 09:58-0400 Systolic blood pressure 110 mm[Hg] Lucas Green FRAMING SPECIALIST.TIER TRUCK DRIVER Work Phone: [facility] 08-22-2022 10:53-0500 Body temperature 98.29 [degF] Tu Pendlebenitez FRAMING SPECIALIST.TIER TRUCK DRIVER Work Phone: [facility] 08-22-2022 10:53-0500 Body weight 59.42 kg Tu Silvestre FRAMING SPECIALIST.TIER TRUCK DRIVER Work Phone: [facility] 08-22-2022 10:53-0500 Diastolic blood pressure 72 mm[Hg] Tu Pendlebury FRAMING SPECIALIST.TIER TRUCK DRIVER Work Phone: [facility] 08-22-2022 10:53-0500 Heart rate 88 /min Tu Silvestre FRAMING SPECIALIST.TIER TRUCK DRIVER Work Phone: [facility] 08-22-2022 10:53-0500 Respiratory rate 16 /min Tu Hammadmattbenitez FRAMING SPECIALIST.TIER TRUCK DRIVER Work Phone: [facility] 08-22-2022 10:53-0500 SaO2% (BldA) [Mass fraction] 99 % Tu Rivers FRAMING SPECIALIST.TIER TRUCK DRIVER Work Phone: [facility] 08-22-2022 10:53-0500 Systolic blood pressure 124 mm[Hg] Tu Hammadlebenitez FRAMING SPECIALIST.TIER TRUCK DRIVER Work Phone: [facility] 08-11-2022 11:35-0500 Body temperature 98.4 [degF] Idalia Don FRAMING SPECIALIST.TIER TRUCK DRIVER Work Phone: [facility] 08-11-2022 11:35-0500 Body weight 59.42 kg Idalia Don FRAMING SPECIALIST.TIER TRUCK DRIVER Work Phone: [facility] 08-11-2022 11:35-0500 Diastolic blood pressure 72 mm[Hg] Idalia Don FRAMING SPECIALIST.TIER TRUCK DRIVER Work Phone: [facility] 08-11-2022 11:35-0500 Heart rate 76 /min Idalia Don FRAMING SPECIALIST.TIER TRUCK DRIVER Work Phone: [facility] 08-11-2022 11:35-0500 Respiratory rate 16 /min Idalia Don FRAMING SPECIALIST.TIER TRUCK DRIVER Work Phone: [facility] 08-11-2022 11:35-0500 SaO2% (BldA) [Mass fraction] 99 % Idalia Don FRAMING SPECIALIST.TIER TRUCK DRIVER Work Phone: [facility] 08-11-2022 11:35-0500 Systolic blood pressure 122 mm[Hg] Idalia Don FRAMING SPECIALIST.TIER TRUCK DRIVER Work Phone: [facility] 07-23-2022 12:04-0500 Body temperature 98.6 [degF] Natalya Simpson FRAMING SPECIALIST.TIER TRUCK DRIVER Work Phone: [facility] 07-23-2022 12:04-0500 Body weight 57.97 kg Natalya Simpson FRAMING SPECIALIST.TIER TRUCK DRIVER Work Phone: [facility] 07-23-2022 12:04-0500 Diastolic blood pressure 66 mm[Hg] Natalya Simpson FRAMING SPECIALIST.TIER TRUCK DRIVER Work Phone: [facility] 07-23-2022 12:04-0500 Heart rate 82 /min Natalya Simpson FRAMING SPECIALIST.TIER TRUCK DRIVER Work Phone: [facility] 07-23-2022 12:04-0500 Respiratory rate 18 /min Natalya Simpson FRAMING SPECIALIST.TIER TRUCK DRIVER Work Phone: [facility] 07-23-2022 12:04-0500 SaO2% (BldA) [Mass fraction] 98 % Natalya Simpson FRAMING SPECIALIST.TIER TRUCK DRIVER Work Phone: [facility] 07-23-2022 12:04-0500 Systolic blood pressure 118 mm[Hg] Natalya Simpson FRAMING SPECIALIST.TIER TRUCK DRIVER Work Phone: [facility] 12-10-2021 14:38-0400 Body temperature 97.5 [degF] Idalia Don FRAMING SPECIALIST.TIER TRUCK DRIVER Work Phone: [facility] 12-10-2021 14:38-0400 Body weight 58.33 kg Idalia Ochoa FRAMING SPECIALIST.TIER TRUCK DRIVER Work Phone: [facility] 12-10-2021 14:38-0400 Diastolic blood pressure 76 mm[Hg] Idalia Ochoa FRAMING SPECIALIST.TIER TRUCK DRIVER Work Phone: [facility] 12-10-2021 14:38-0400 Heart rate 90 /min Idalia Ochoa FRAMING SPECIALIST.TIER TRUCK DRIVER Work Phone: [facility] 12-10-2021 14:38-0400 Respiratory rate 19 /min Idalia Ochoa FRAMING SPECIALIST.TIER TRUCK DRIVER Work Phone: [facility] 12-10-2021 14:38-0400 SaO2% (BldA) [Mass fraction] 99 % Idalia Ochoa FRAMING SPECIALIST.TIER TRUCK DRIVER Work Phone: [facility] 12-10-2021 14:38-0400 Systolic blood pressure 104 mm[Hg] Idalia Ochoa FRAMING SPECIALIST.TIER TRUCK DRIVER Work Phone: [facility] Encounters Encounter Date Encounter Type Care Provider Facility Start: 10-13-2023 End: 10-13-2023 ambulatory LUCAS GREEN Facility:[facility] Start: 08-21-2023 Refill Lucas sharp FRAMING SPECIALIST.CHERYL Work Phone: [facility] Procedures Date Procedure Procedure Detail Performing Clinician Start: 10-28-2022 H/O: surgery Status post bilateral salpingectomy Lucas Green FRAMING SPECIALIST.CHERYL Work Phone: Start: 07-23-2022 STREP A MOLECULAR (POC) Natalya Simpson FRAMING SPECIALIST.TIER TRUCK DRIVER Work Phone: Start: 03-21-2021 Adult depression screening assessment Idalia Ochoa APRNKirkTIER TRUCK DRIVER Work Phone: Plan of Treatment Date Care Activity Detail Author Start: 10-06-2027 Screening for malign ant neoplasm of cervix Pap Testing [facility] Start: 12-10-2026 Urine microalbumin profile [facility] Start: 10-06-2025 PAP TESTING PAP TESTING [facility] Start: 12-12-2023 COVID-19 VACCINE (4 - Booster for Moderna series) COVID-19 VACCINE (4 - Booster for Moderna series) [facility] Immunizations Immunization Date Immunization Notes Care Provider Los chou 12-10-2016 tetanus toxoid, redu david diphtheria toxoid, and acellular pertussis vaccine, adsorbed Idalia Don FRAMING SPECIALIST.[facility] Work Phone: [facility] Work Phone: 10-01-2015 tetanus toxoid, redu david diphtheria toxoid, and acellular pertussis vaccine, adsorbed Idalia Don FRAMING SPECIALIST.[facility] Work Phone: [facility] 08-07-2012 tetanus toxoid, redu david diphtheria toxoid, and acellular pertussis vaccine, adsorbed Idalia Don FRAMING SPECIALIST.[facility] Work Phone: [facility] Work Phone: 06-24-2009 influenza virus vacc ine, unspecified formulation Idalia Don FRAMING SPECIALIST.TIER TRUCK DRIVER Work Phone: [facility] Work Phone: 04-04-2008 human papilloma viru s vaccine, quadrivalent Idalia Don FRAMING SPECIALIST.[facility] Work Phone: [facility] Work Phone: 11-03-2007 human papilloma viru s vaccine, quadrivalent Idalia Don FRAMING SPECIALIST.TIER TRUCK DRIVER Work Phone: [facility] Work Phone: 08-10-2007 human papilloma viru s vaccine, quadrivalent Idalia Don FRAMING SPECIALIST.TIER TRUCK DRIVER Work Phone: [facility] Work Phone: 08-10-2007 influenza virus vacc ine, unspecified formulation Idalia Don FRAMING SPECIALIST.TIER TRUCK DRIVER Work Phone: [facility] Work Phone: 08-10-2007 meningococcal polysaccharide (groups A, C, Y and W-135) diphtheria toxoid conjugate vaccine (MCV4P) Idalia Don FRAMING SPECIALIST.[facility] Work Phone: [facility] Work Phone: 08-10-2007 Meningococcal, MCV4, unspecified conjugate formulation(groups A, C, Y and W-135) Idalia Ochoa APRN.[facility] Work Phone: [facility] Work Phone: 05-03-2006 tetanus toxoid, redu david diphtheria toxoid, and acellular pertussis vaccine, adsorbed Idalia Don FRAMING SPECIALIST.[facility] Work Phone: [facility] Work Phone: 01-21-1998 diphtheria, tetanus toxoids and acellular pertussis vaccine, unspecified formulation Idaliamaricel Burgosk FRAMING SPECIALIST.[facility] Work Phone: [facility] Work Phone: 01-21-1998 hepatitis B vaccine, pediatric or pediatric/adolescent dosage Idaliamaricel Ochoa FRAMING SPECIALIST.[facility] Work Phone: [facility] Work Phone: 01-21-1998 measles, mumps and rubella virus vaccine Idalia Burgosk FRAMING SPECIALIST.[facility] Work Phone: [facility] Work Phone: 01-21-1998 poliovirus vaccine, inactivated Idalia Ochoa FRAMING SPECIALIST.[facility] Work Phone: [facility] Work Phone: 01-21-1998 trivalent poliovirus vaccine, live, oral Idalia Ochoa FRAMING SPECIALIST.[facility] Work Phone: [facility] Work Phone: 01-11-1998 diphtheria, tetanus toxoids and acellular pertussis vaccine Idalia Burgosk FRAMING SPECIALIST.[facility] Work Phone: [facility] Work Phone: 10-25-1996 diphtheria, tetanus toxoids and acellular pertussis vaccine Idalia Don FRAMING SPECIALIST.[facility] Work Phone: [facility] Work Phone: 10-25-1996 diphtheria, tetanus toxoids and pertussis vaccine Idalia Don FRAMING SPECIALIST.TIER TRUCK DRIVER Work Phone: [facility] Work Phone: 10-25-1996 hepatitis B vaccine, pediatric or pediatric/adolescent dosage Idalia Don FRAMING SPECIALIST.TIER TRUCK DRIVER Work Phone: [facility] Work Phone: 10-25-1996 poliovirus vaccine, inactivated Idalia Don FRAMING SPECIALIST.TIER TRUCK DRIVER Work Phone: [facility] Work Phone: 10-25-1996 trivalent poliovirus vaccine, live, oral Idalia Don FRAMING SPECIALIST.TIER TRUCK DRIVER Work Phone: [facility] Work Phone: 07-10-1996 DTP-Haemophilus influenzae type b conjugate vaccine Idalia Don FRAMING SPECIALIST.[facility] Work Phone: [facility] Work Phone: 07-10-1996 haemophilus influenz ae type b vaccine, HbOC conjugate Idalia Don FRAMING SPECIALIST.[facility] Work Phone: [facility] Work Phone: 07-10-1996 haemophilus influenz ae type b vaccine, PRP-T conjugate Idalia Don FRAMING SPECIALIST.[facility] Work Phone: [facility] Work Phone: 07-10-1996 hepatitis B vaccine, pediatric or pediatric/adolescent dosage Idalia Don FRAMING SPECIALIST.TIER TRUCK DRIVER Work Phone: [facility] Work Phone: 07-10-1996 measles, mumps and rubella virus vaccine Idalia Don FRAMING SPECIALIST.TIER TRUCK DRIVER Work Phone: [facility] Work Phone: 07-10-1996 poliovirus vaccine, inactivated Idalia Don FRAMING SPECIALIST.[facility] Work Phone: [facility] Work Phone: 07-10-1996 trivalent poliovirus vaccine, live, oral Idalia Don FRAMING SPECIALIST.TIER TRUCK DRIVER Work Phone: [facility] Work Phone: 07-10-1994 diphtheria, tetanus toxoids and acellular pertussis vaccine Idalia Don FRAMING SPECIALIST.[facility] Work Phone: [facility] Work Phone: 07-10-1994 diphtheria, tetanus toxoids and pertussis vaccine Idalia Don FRAMING SPECIALIST.TIER TRUCK DRIVER Work Phone: [facility] Work Phone: 1993 diphtheria, tetanus toxoids and acellular pertussis vaccine Idalia Don FRAMING SPECIALIST.[facility] Work Phone: [facility] Work Phone: 1993 diphtheria, tetanus toxoids and pertussis vaccine Idalia Don FRAMING SPECIALIST.[facility] Work Phone: [facility] Work Phone: 1993 haemophilus influenz ae type b vaccine, HbOC conjugate Idalia Don FRAMING SPECIALIST.[facility] Work Phone: [facility] Work Phone: 1993 haemophilus influenz ae type b vaccine, PRP-T conjugate Idalia Don FRAMING SPECIALIST.[facility] Work Phone: [facility] Work Phone: 1993 poliovirus vaccine, inactivated Idalia Don FRAMING SPECIALIST.[facility] Work Phone: [facility] Work Phone: 1993 trivalent poliovirus vaccine, live, oral Idalia Don FRAMING SPECIALIST.[facility] Work Phone: [facility] Work Phone: Payers Date Payer Category Payer Unknown [id number] 2022 Medicaid [id number] 2016 Medicaid [employer] [id number] 2016-Present [phone] [address] [place] [address] Medicaid [id number] 2016 Medicaid [id number] 2016 Medicaid [id number] Social History Date Type Detail Facility Start: 07-16-2016 End: 07-23-2022 Tobacco smoking status NHIS Ex-smoker [facility] Work Phone: End: 07-02-2016 History of tobacco use Current smoker [facility] Work Phone: End: 07-02-2016 History of tobacco use Cigarette Smoker [facility] Work Phone: Start: 07-16-2016 End: 10-28-2022 Cigarettes smoked current (pack per day) - Reported 0.5 [facility] Start: 07-16-2016 End: 07-23-2022 Tobacco use and exposure Former smokeless tobacco user [facility] Work Phone: End: 06-15-2016 History of tobacco use User of smokeless tobacco [facility] Work Phone: Start: 12-10-2021 End: 12-13-2022 Alcohol intake Current non-drinker of alcohol (finding) [facility] Start: 09-15-2019 History SDOH Social Connections Phone 5 [facility] Start: 09-15-2019 History SDOH Social Connections Tenriism 3 [facility] Start: 09-15-2019 History SDOH Social Connections Membership 1 [facility] Start: 09-15-2019 History SDOH Social Connections Living 7 [facility] Start: 09-15-2019 History SDOH Physical Activity MPS 6 [facility] Start: 09-15-2019 History SDOH Transport Med 2 [facility] Start: 09-15-2019 Education 13 [facility] Start: 10-01-2015 End: 07-23-2022 Tobacco Comment 1/2 ppd [facility] Start: 1995 Sex Assigned At Female [facility] Start: 11-30-2021 End: 07-23-2022 Exposure to SARS-CoV-2 (event) Not sure [facility] Start: 09-15-2019 End: 10-28-2022 Social connection and isolation panel [facility] Do you belong to any clubs or organizations such as yazidi groups, unions, fraternal or athletic groups, or school groups? Yes [facility] Are you now , , , , never or living with a partner? Never [facility] How hard is it for y ou to pay for the very basics like food, housing, medical care, and heating Not hard at all [facility] Do you feel stress - tense, restless, nervous, or anxious, or unable to sleep at night because your mind is troubled all the time - these days [OSQ] To some extent [facility] (I/We) worried wheth er (my/our) food would run out before (I/we) got money to buy more. Never true [facility] Start: 07-22-2021 Gender identity Identifies as female gender (finding) [facility] Start: 07-22-2021 Sexual orientation Heterosexual (finding) [facility] Clinical Notes 12-11-2016 to 10-13-2023 Telephone Encounter - Lynne Perez MA - 08/23/2023 8:06 AM Kurtis Green APRN.CHERYL - 12/11/2022 10:09 AM Jane Green APRN.CNP - 10/28/2022 4:48 PM ESTPatient Instructions Note Date & Type Note Facility 10-13-2023 Note HNO ID: [id number] Author: LUCAS GREEN APRN.CHERYL Service: ? Author Type: Nurse Practitioner Type: Progress Notes Filed: 10/13/2023 11:48 Note Text: This note was created using NoteWriter. Subjective Lucas Woodson is a 28 year old female here today for anxiety, constipation. I reviewed past medical, surgical, social, and family histories today and updated chart. Allergies, chronic medications, and supplements were also reviewed. Just ended period yesterday Period previous was really bad - very painful, was crying [place] like something was not right She thought she was going to pass out Cramps have been really bad Flow is a lot heavier She saw a BULL WHEEL WORKER yesterday Getting ultrasound done Has a pill to take 3 x day during period Anxiety - has been bad Trouble focusing Affecting work and relationships with people Trouble with memory No headaches Wears contacts - no vision changes She stopped her wellbutrin - does not remember why but she does not want to restart it Has been on lexapro, buspar, prozac, zoloft, abilify, hydroxyzine She is taking trazodone at bedtime she is taking 50 mg at bedtime 100 mg makes her too drowsy Sometimes it works and sometimes it doesn't If she doesn't take it at all feels little shaky, withdrawal She has never seen a psychiatrist For well over a year - she has been having rectal pain and bright red blood with bowel movements Occurs with most BMs No relationship with periods Stool is looking normal - brown, consistency varies - sometimes harder and others smoother No straining Feels like there is a needle No regular loose stools No abdominal pain No nausea or vomiting Diet - has improved in the last year Gave up soda Jul 2022 Drinks a lot of water Coffee or tea No junk foods Plenty of vegetables No exercise routine but is very active at work PAST MEDICAL HISTORY Diagnosis Date Anemia During Chlamydia 2013 Depression Dysmenorrhea Dyspareunia Generalized anxiety disorder Other kyphoscoliosis and scoliosis Panic attacks PAST SURGICAL HISTORY Procedure Laterality Date PAST SURGICAL HISTORY OF pylionidal dimple closure -as baby SALPINGECTOMY Bilateral 02/10/2022 Dr. Teran TOOTH EXTRACTION 2015 wisdom teeth ALLERGIES Phenergan [Promethazine Hcl] and Zoloft [Sertraline Hcl] MEDICATIONS fexofenadine HCl (ANABEL 60 MG CAP) traZODone (DESYREL) 100 mg tablet take 1 tablet by mouth once daily at bedtime (Patient taking differently: Take 50 mg by mouth daily at bedtime.) buPROPion SR (WELLBUTRIN SR) 150 mg 12 hr tablet Take 1 tablet by mouth twice daily. Lactobac no.41/Bifidobact no.7 (PROBIOTIC-10 ORAL) Take by mouth. (Patient not taking: Reported on 10/13/2023) Multivitamin capsule Take 1 capsule by mouth once daily. (Patient not taking: Reported on 10/13/2023) fluticasone (FLONASE) 50 mcg/actuation nasal spray Use 2 Sprays in each nostril once daily. Rinse mouth after use. (Patient not taking: Reported on 10/13/2023) FAMILY HISTORY Problem Relation Age of Onset Cancer Maternal Grandmother lung and non-hodgkins/Ovarian Asthma Mother Cervical Cancer Mother 40's other (Other, goiter) Mother had tyroidectomy Heart Attack Maternal Grandfather 48 Social History Tobacco Use Smoking status: Former Packs/day: 0.50 Years: 6.00 Additional pack years: 0.00 Total pack years: 3.00 Types: Cigarettes Quit date: 07/02/2016 Years since quittin.2 Smokeless tobacco: Former Quit date: 06/15/2016 Tobacco comments: 1/2 ppd Vaping Use Vaping Use: Never used Substance Use Topics Alcohol use: No Drug use: Never Review of Systems Constitutional: Positive for fatigue. Negative for appetite change, chills, fever and unexpected weight change. HENT: Negative for congestion, ear pain, rhinorrhea and sore throat. Eyes: Negative for pain, discharge, itching and visual disturbance. Respiratory: Negative for cough, shortness of breath and wheezing. Cardiovascular: Negative for chest pain, palpitations and leg swelling. Gastrointestinal: Positive for abdominal pain (menstrual cramping), blood in stool and constipation. Negative for diarrhea, nausea and vomiting. Genitourinary: Negative for difficulty urinating. Musculoskeletal: Negative for arthralgias. Skin: Negative for rash. Neurological: Negative for dizziness, tremors, weakness and headaches. Psychiatric/Behavioral: Positive for confusion, decreased concentration and sleep disturbance. Negative for dysphoric mood. The patient is nervous/anxious. Objective BP 110/70 Pulse 82 Temp 36.8 ?C (98.2 ?F) Ht 161.3 cm (5' 3.5 ) Wt 57.6 kg (127 lb) LMP 07/17/2022 (Exact Date) SpO2 98% BMI 22.14 kg/m? Physical Exam Constitutional: Appearance: Normal appearance. She is not toxic-appearing. HENT: Head: Normocephalic and atraumatic. Mouth/Throat: Lips: [place]. Mouth: Mucous membranes are mo (more content not included)... [facility] 08-23-2023 Miscellaneous Notes Formattin g of this [...] at bedtime Please review and advise. Lynne Preez MA documented in this encounter [facility] 12-11-2022 Note HNO ID: [id number] Author: Lucas Green APRN.TIER TRUCK DRIVER Service: ? Author Type: Nurse Practitioner Type: Progress Notes Filed: 12/13/2022 10:38 PM Note Text: This note was created using [employer]. Subjective Lucas Woodson is a 27 year [...] and perception norm (more content not included)... [facility] 12-11-2022 History of Presen t illness Narrative This note was created using [employer]. Subjective Lucas Woodson is a 27 year [...] Z13.220 - LIPID PANEL BASIC Lucas Green APRN.CHERYL documented in this encounter [facility] 10-28-2022 Note HNO ID: [id number] Author: Lucas Green APRN.CNP Service: ? Author Type: Nurse Practitioner Type: Progress Notes Filed: 10/28/2022 9:54 PM Note Text: VIRTUAL VISIT PROGRESS NOTE This is a virtual visit using [employer] video visit. It required patient-provider interaction for [...] months for well adult exam Lucas Green APRN.[facility] 10-28-2022 History of Presen t illness Narrative VIRTUAL VISIT PROGRESS NOTE This is a virtual visit using [employer] video visit. It required patient-provider interaction for [...] months for well adult exam Lucas Green APRN.TIER TRUCK DRIVER documented in this encounter [facility] 10-27-2022 Miscellaneous Notes Formattin g of this [...] Hannah Barnes MA documented in this encounter [facility] 09-16-2022 History of Presen t illness Narrative ED Follow Up: Patient discharged from [facility] ED on 09/14/22. 1. How are you [...] you able to contact the office or concrete mixer loader truck mounted provider prior to your ED visit? Left VM for pt to call the office 5. Is there anything else I can do for you today? Left VM for pt to call the office documented in this encounter [facility] 08-22-2022 Note HNO ID: [id number] Author: Tu Rivers APRN.TIER TRUCK DRIVER Service: ? Author Type: Nurse Practitioner Type: [...] with vaginal disc (more content not included)... [facility] 08-22-2022 History of Presen t illness Narrative [...] tobacco: Former Quit date: 06/15/2016 Tobacco comments: 09/14 ppd Vaping Use Vaping Use: Never [...] of care. This note was generated using [employer] software. It may contain errors in wording, punctuation, or spelling. Tu Rivers APRN.CHERYL documented in this encounter [facility] 08-11-2022 Note HNO ID: [id number] Author: Idalia Ochoa APRN.CHERYL Service: ? Author Type: Nurse Practitioner Type: Progress Notes Filed: 08/11/2022 11:44 AM Note Text: Subjective The history is provided by the patient. No modern languages professor was used. HPI Lucas Woodson is a [...] have confirmed and edited as necessary, the [facility] Review of Systems Constitutional: Negative for [...] detail warranting prompt ER evaluation. Idalia Ochoa APRN.CNP [facility] 08-11-2022 Instructions Idalia Ochoa APRN.CNP - [...] effects of medication. documented in this encounter [facility] 08-11-2022 History of Presen t illness Narrative Subjective The history is provided by the patient. No modern languages professor was used. HPI Lucas Woodson is a [...] have confirmed and edited as necessary, the [facility] Review of Systems Constitutional: Negative for [...] detail warranting prompt ER evaluation. Idalia Ochoa APRN.CNP documented in this encounter [facility] 07-23-2022 Note HNO ID: [id number] Author: Natalya Simpson APRN.CNP Service: ? Author Type: Nurse Practitioner Type: Progress Notes Filed: 07/23/2022 12:22 PM Note Text: This note was created using [employer]. Subjective Lucas Woodson is a 27 year [...] history is provided by the patient. No modern languages professor was used. Sore Throat This is a [...] Extraocular Movements: Extrao (more content not included)... [facility] 07-23-2022 Instructions Natalya Simpson APRN.[facility] - 07/23/2022 12:18 PM EST RESPIRATORY [...] by coughs, sneezes, and direct contact, especially [id number]. A respiratory tract infection usually clears up [...] F (39 C). documented in this encounter [facility] 07-23-2022 History of Presen t illness Narrative This note was created using [employer]. Subjective Lucas Woodson is a 27 year [...] history is provided by the patient. No modern languages professor was used. Sore Throat This is a [...] Natalya Simpson APRN.CHERYL documented in this encounter [facility] 04-29-2022 Miscellaneous Notes Formattin g of this note is different from the original. Pharmacy requesting refills as follows: Last Office Visit 07/22/21. Last Refill 10/31/21. Requested Prescriptions Pending Prescriptions Disp Refills traZODone (DESYREL) 50 mg tablet 30 tablet 5 Sig: Take 1 tablet by mouth daily at bedtime. Please review and advise. Heavenly Santiago MA documented in this encounter [facility] 12-10-2021 History of Presen t illness Narrative [...] Former User Quit date: 06/15/2016 Tobacco comment: 1/2 ppd Vaping Use Vaping Use: Never used Substance Use Topics Alcohol use: No Drug use: Never PAST MEDICAL HISTORY Diagnosis Date Anemia During Chlamydia 2013 Depression Dysmenorrhea Dyspareunia Generalized anxiety disorder Other kyphoscoliosis and scoliosis Panic attacks I have confirmed and edited as necessary, the [facility] Review of Systems Constitutional: Negative for [...] Idalia Ochoa APRN.CHERYL documented in this encounter [facility] 12-10-2021 Instructions Idalia Ochoa APRN.CNP - 12/10/2021 [...] or talk normally. documented in this encounter [facility] documented as of this encounter (statuses as of 12/10/2021) [facility]03-[facility]-2017 History of Past illness Narrative* Problem Noted Date Resolved Date Antepartum anemia complicating in thir d trimester 12/11/2016 03/25/2017 Encounter for supervision of normal in third trimester 10/12/2016 03/25/2017 Overview: Boy on us- [place] Pelvic pain in 07/16/2016 017 Overview: 07/16/2016Pt was seen at [facility] 06/29/2016 for pelvic cramping. She [...] of this encounter (statuses as of 04/29/2022) [facility] History of Past illness Narrative* Problem Noted Date Resolved Date Antepartum anemia complicating in thir d trimester 12/11/2016 03/25/2017 Encounter for supervision of normal in third trimester 10/12/2016 03/25/2017 Overview: Boy on us- [place] Pelvic pain in 07/16/2016 017 Overview: 07/16/2016Pt was seen at [facility] 06/29/2016 for pelvic cramping. She [...] of this encounter (statuses as of 07/23/2022) [facility] History of Past illness Narrative* Problem Noted Date Resolved Date Antepartum anemia complicating in thir d trimester 12/11/2016 03/25/2017 Encounter for supervision of normal in third trimester 10/12/2016 03/25/2017 Overview: Boy on us- [place] Pelvic pain in 07/16/2016 017 Overview: 07/16/2016Pt was seen at [facility] 06/29/2016 for pelvic cramping. She [...] of this encounter (statuses as of 08/11/2022) [facility] History of Past illness Narrative* Problem Noted Date Resolved Date Antepartum anemia complicating in thir d trimester 12/11/2016 03/25/2017 Encounter for supervision of normal in third trimester 10/12/2016 03/25/2017 Overview: Boy on us- [place] Pelvic pain in 07/16/2016 017 Overview: 07/16/2016Pt was seen at [facility] 06/29/2016 for pelvic cramping. She [...] of this encounter (statuses as of 08/22/2022) [facility] History of Past illness Narrative* Problem Noted Date Resolved Date Antepartum anemia complicating in thir d trimester 12/11/2016 03/25/2017 Encounter for supervision of normal in third trimester 10/12/2016 03/25/2017 Overview: Boy on us- [place] Pelvic pain in 07/16/2016 017 Overview: 07/16/2016Pt was seen at [facility] 06/29/2016 for pelvic cramping. She [...] of this encounter (statuses as of 09/18/2022) [facility] History of Past illness Narrative* Problem Noted Date Resolved Date Antepartum anemia complicating in thir d trimester 12/11/2016 03/25/2017 Encounter for supervision of normal in third trimester 10/12/2016 03/25/2017 Overview: Boy on us- [place] Pelvic pain in 07/16/2016 017 Overview: 07/16/2016Pt was seen at [facility] 06/29/2016 for pelvic cramping. She [...] of this encounter (statuses as of 10/28/2022) [facility] History of Past illness Narrative* Problem Noted Date Resolved Date Antepartum anemia complicating in thir d trimester 12/11/2016 03/25/2017 Encounter for supervision of normal in third trimester 10/12/2016 03/25/2017 Overview: Boy on us- [place] Pelvic pain in 07/16/2016 017 Overview: 07/16/2016Pt was seen at [facility] 06/29/2016 for pelvic cramping. She [...] of this encounter (statuses as of 10/29/2022) [facility] History of Past illness Narrative* Problem Noted Date Resolved Date Antepartum anemia complicating in thir d trimester 12/11/2016 03/25/2017 Encounter for supervision of normal in third trimester 10/12/2016 03/25/2017 Overview: Boy on us- [place] Pelvic pain in 07/16/2016 017 Overview: 07/16/2016Pt was seen at [facility] 06/29/2016 for pelvic cramping. She [...] of this encounter (statuses as of 12/14/2022) [facility] History of Past illness Narrative* Problem Noted Date Resolved Date Antepartum anemia complicating in thir d trimester 12/11/2016 03/25/2017 Encounter for supervision of normal in third trimester 10/12/2016 03/25/2017 Overview: Boy on us- [place] Pelvic pain in 07/16/2016 017 Overview: 07/16/2016Pt was seen at [facility] 06/29/2016 for pelvic cramping. She [...] of this encounter (statuses as of 12/21/2022) [facility] History of Past illness Narrative* Problem Noted Date Diagnosed Date Resolved Date Antepartum anemia complicati ng in third trimester 12/11/2016 03/25/2017 Encounter for supervision of normal in third trimester 10/12/2016 03/25/2017 Overview: Boy on us- [place] Pelvic pain in 07/16/2016 Overview: 07/16/2016Pt was seen at [facility] 06/29/2016 for pelvic cramping. She [...] of this encounter (statuses as of 08/25/2023) [facility] Fluid collection of middle ear- Primary [facility] Diagnosis Pharyngitis, unspecified etiology- Primary URI, acute Acute upper respiratory infections of unspecified site [facility] Diagnosis Acute non-recurrent pansinusitis- Primary documented in this encounter [facility] note* Diagnosis Vaginal discharge- Primary Leukorrhea, not specified as infective documented in this encounter [facility] note* Diagnosis ROSANA (generalized anxiety disorder)- Primary Generalized anxiety disorder Insomnia, unspecified type Migraine, unspecified, without mention of intractable migraine without mention of status migrainosus documented in this encounter [facility] note* Diagnosis ROSANA (generalized anxiety disorder)- Primary Generalized anxiety disorder Mild episode of recurrent major depressive disorder (HCC) Chronic dermatitis of hands Contact dermatitis and other eczema, due to unspecified cause Thyroid disorder screening Screening for thyroid disorder Screening for lipid disorders documented in this encounter [facility] Summary Purpose Family History No Family History [...] or prosecute any alcohol or drug abuse patient.[facility] the event this information is protected by the Federal Confidentiality of Alcohol and Drug Abuse Patient Records regulations: The Federal rules restrict any use of the information to criminally investigate or prosecute any alcohol or drug abuse patient.[facility] the event this information is protected by the Federal Confidentiality of Alcohol and Drug Abuse Patient Records regulations: The Federal rules restrict any use of the information to criminally investigate or prosecute any alcohol or drug abuse patient.[facility] the event this information is protected by the Federal Confidentiality of Alcohol and Drug Abuse Patient Records regulations: The Federal rules restrict any use of the information to criminally investigate or prosecute any alcohol or drug abuse patient.[facility] the event this information is protected by the Federal Confidentiality of Alcohol and Drug Abuse Patient Records regulations: The Federal rules restrict any use of the information to criminally investigate or prosecute any alcohol or drug abuse patient.[facility] the event this information is protected by the Federal Confidentiality of Alcohol and Drug Abuse Patient Records regulations: The Federal rules restrict any use of the information to criminally investigate or prosecute any alcohol or drug abuse patient.[facility] the event this information is protected by the Federal Confidentiality of Alcohol and Drug Abuse Patient Records regulations: The Federal rules restrict any use of the information to criminally investigate or prosecute any alcohol or drug abuse patient.[facility] Hospital[facility] the event this information is protected by the Federal Confidentiality of Alcohol and Drug Abuse Patient Records regulations: The Federal rules restrict any use of the information to criminally investigate or prosecute any alcohol or drug abuse patient.[facility] the event this information is protected by the Federal Confidentiality of Alcohol and Drug Abuse Patient Records regulations: The Federal rules restrict any use of the information to criminally investigate or prosecute any alcohol or drug abuse patient.[facility] HospitalIn the event this information is protected by the Federal Confidentiality of Alcohol and Drug Abuse Patient Records regulations: The Federal rules restrict any use of the information to criminally investigate or prosecute any alcohol or drug abuse patient.[facility] Hospital[facility] the event this information is protected by the Federal Confidentiality of Alcohol and Drug Abuse Patient Records regulations: The Federal rules restrict any use of the information to criminally investigate or prosecute any alcohol or drug abuse patient.[facility] Reason for Visit (unrecogniz ed section and [...] Care Teams (unrecognized sec tion and content) Rock Duster Relationship Specialty Start Date End Date Lucas Green, FRAMING SPECIALIST.TIER TRUCK DRIVER [address] [place] [address] PCP - General Family Practice 09/27/19 Rock Duster Relationship Specialty Start Date End Date Lucas Green, FRAMING SPECIALIST.TIER TRUCK DRIVER [address] [place] [address] PCP - General Family Medicine 09/27/19 Rock Duster Relationship Specialty Start Date End Date Lucas Green, FRAMING SPECIALIST.TIER TRUCK DRIVER [address] [place] [address] PCP - General Family Medicine 09/27/19 Rock Duster Relationship Specialty Start Date End Date Lucas Green, FRAMING SPECIALIST.TIER TRUCK DRIVER [address] [place] [address] PCP - General Family Medicine 09/27/19 Rock Duster Relationship Specialty Start Date End Date Lucas Green, FRAMING SPECIALIST.TIER TRUCK DRIVER [address] [facility] [place] [phone] PCP - General Family Medicine 09/27/19 Rock Duster Relationship Specialty Start Date End Date Lucas Green FRAMING SPECIALIST.TIER TRUCK DRIVER [address] [facility], [place] [phone] PCP - General Family Medicine 09/27/19 Rock Duster Relationship Specialty Start Date End Date Lucas Green FRAMING SPECIALIST.TIER TRUCK DRIVER [address] [facility], [place] [phone] PCP - General Family Medicine 09/27/19 Rock Duster Relationship Specialty Start Date End Date Lucas Green, FRAMING SPECIALIST.TIER TRUCK DRIVER [address] [facility], [place] [phone] PCP - General Family Medicine 09/27/19 INFORMATION SOURCE (unrecogn ized section and content) DATE CREATED AUTHOR AUTHOR'S ORGANIZ ATION 10/14/2023 [facility] FOR RECORDS PERTAINING TO PATIENTS WHO ARE [...] BE BASED ON THE PRIMARY CLINICAL RECORDS. [employer] provides no warranty or guarantee of the accuracy or completeness of information in this document.
== END | disposition home or self-care (01) ==
PROVIDERS: PCP Nurse Practitioner Family; Referring Provider Nurse Practitioner Women's Health; Visit Provider Nurse Practitioner Women's Health
DX: N92.0 Excessive and frequent menstruation with regular cycle (principal); N94.6 Dysmenorrhea, unspecified
CPT/HCPCS: 76830; 76856

== ENCOUNTER → 2024-06-06 | Outpatient (CLI) | payer BC, SELFPAY ==
[2024-06-08 04:08] LABS: Chlamydia By Nucleic Acid AMP Negative (Negative); Gonococcus By Nucleic Acid AMP Negative (Negative)
== END | disposition home or self-care (01) ==
LOC: LABSPEC 12:02
PROVIDERS: PCP Nurse Practitioner Family; Referring Provider Nurse Practitioner Women's Health; Visit Provider Nurse Practitioner Women's Health
DX: N89.8 Other specified noninflammatory disorders of vagina (principal); Z11.3 Encounter for screening for infections with a predominantly sexual mode of transmission
CPT/HCPCS: 87070; 87186; 87205; 87491; 87591